=== PATIENT | male | born 1950 | race Caucasian/White ===

== ENCOUNTER → 2018-03-23 | Outpatient (CLI) | payer MEDICARE, OTHER ==
--- NOTE | 2018-03-23 11:36 | US ---
EXAMINATION TYPE: US venous doppler duplex LE LT DATE OF EXAM: 03/23/2018 11:00 AM COMPARISON: NONE CLINICAL HISTORY: M79.662/R22.42 Pain/swelling left leg. SIDE PERFORMED: Left TECHNIQUE: The lower extremity deep venous system is examined utilizing real time linear array sonog pamela with graded compression, doppler sonography and color-flow sonography. VESSELS IMAGED: External Iliac Vein (EIV) Common Femoral Vein Deep Femoral Vein Greater Saphenous Vein * Femoral Vein Popliteal Vein Small Saphenous Vein * Proximal Calf Veins (* superficial vessels) Grayscale, color doppler, spectral doppler imaging performed of the deep veins of the left lower extr emity. There is normal flow, compressibility, vascular waveforms. Left Leg: Positive for DVT from the left distal femoral vein to the distal popliteal vein IMPRESSION: Acute deep venous thrombosis beginning in the distal left femoral vein and extending into the popliteal vein. Preliminary results called to Dr Sanchez at time of exam by Fabi Aguilar at 11:1 2:57 AM on 03/23/2018, patient sent back to the office.
== END | disposition home or self-care (01) ==
LOC: RADUSWWP 10:29
PROVIDERS: ATTEND Internal Medicine
DX: I82.412 Acute embolism and thrombosis of left femoral vein (principal); I82.432 Acute embolism and thrombosis of left popliteal vein

== ENCOUNTER → 2019-08-24 | Outpatient (CLI) | payer MEDICARE, OTHER ==
--- NOTE | 2019-08-24 09:52 | US ---
EXAMINATION TYPE: US abdomen complete DATE OF EXAM: 08/24/2019 COMPARISON: CT CLINICAL HISTORY: R14.0 Abdominal distention gaseous. History of renal stones and cysts per patient EXAM MEASUREMENTS: Liver Length: 13.7 cm Gallbladder Wall: 0.3 cm CBD: 0.6 cm Spleen: 11.9 cm Right Kidney: 13.2 x 10.1 x 5.9 cm Left Kidney: 15.6 x 8.9 x 6.8 cm Pancreas: Within normal limits Liver: left lobe clustered cysts noted = 0.9 x 1.2 x 0.6cm Gallbladder: multiple shadowing stones are noted within Evidence for sonographic Dyer's sign: no CBD: wnl Spleen: wnl Right Kidney: multiple renal cysts with largest simple cyst noted superiorly =5.9 x 5.6 x 5.6cm; mul tiple hyperechoic foci suggesting renal calcifications with largest seen mid pole = 0.5 x 0.4 x 0.2cm Left Kidney: multiple renal cysts with mid pole simple cyst =5.0 x 5.7 x 4.2cm and inferior pole sim ple cyst = 6.0 x 4.9 x 4.7cm; couple of hyperechoic foci noted with larger mid pole shadowing focus = 0.5 x 0.8 x 0.2cm Upper IVC: wnl Abd Aorta: upper aorta size is within normal limits 2.47cm A/P. IMPRESSION: 1. The gallbladder is filled with multiple shadowing gallstones. However no common bile duct dilatati on is seen. No sonographic evidence of acute cholecystitis. 2. Multiple bilateral renal cysts, the largest on the right measuring 5.9 cm and on the left measurin g 6.0 cm. Cortical calcifications bilaterally likely are on the basis of atherosclerosis rather than nonobstructing punctate calculi. 3. Incidentally noted benign-appearing 1.2 cm hepatic cyst.
== END | disposition home or self-care (01) ==
LOC: RADUSWWP 08:26
PROVIDERS: ATTEND Internal Medicine Gastroenterology
DX: K80.20 Calculus of gallbladder without cholecystitis without obstruction (principal); N28.1 Cyst of kidney, acquired; R14.0 Abdominal distension (gaseous)
CPT/HCPCS: 76700

== ENCOUNTER → 2019-08-26 | Outpatient (CLI) | payer MEDICARE, OTHER ==
[2019-08-26 10:05] LABS: Basophils % (A) 0 %; Eosinophils # (A) 0.3 k/uL (0-0.7); Eosinophils % (A) 3 %; HCT 48.5 % (39.0-53.0); HGB 16.1 gm/dL (13.0-17.5); Lymphocytes # (A) 2.3 k/uL (1.0-4.8); Lymphocytes % (A) 24 %; MCH 28.3 pg (25.0-35.0); MCHC 33.2 g/dL (31.0-37.0); MCV 85.3 fL (80.0-100.0); Mean Platelet Volume 6.9; Monocytes # (A) 0.6 k/uL (0-1.0); Monocytes % (A) 6 %; Neutrophils # (A) 6.4 k/uL (1.3-7.7); Neutrophils % (A) 64 %; Platelet Count 259 k/uL (150-450); RBC 5.69 m/uL (4.30-5.90); RDW 14.3 % (11.5-15.5)
[2019-08-26 17:19] LABS: Gliadin AB IgA, Deaminated NEGATIVE (NEGATIVE); Gliadin AB IgA, Unit <0.2 U/mL; Gliadin AB IgG, Deaminated NEGATIVE (NEGATIVE)
== END | disposition home or self-care (01) ==
LOC: LABWHC1 09:08
PROVIDERS: ATTEND Internal Medicine Gastroenterology
DX: R14.0 Abdominal distension (gaseous) (principal)
CPT/HCPCS: 36415; 83516; 85025

== ENCOUNTER → 2020-02-01 | Outpatient (CLI) | payer MEDICARE, OTHER ==
--- NOTE | 2020-02-01 07:56 | US ---
EXAMINATION TYPE: US liver DATE OF EXAM: 02/01/2020 COMPARISON: Complete abdominal ultrasound August 24, 2019 CLINICAL HISTORY: R94.5 ABN LIVER FUNCTIONS. Abnormal liver function EXAM MEASUREMENTS: Liver Length: 17.1 cm Gallbladder Wall: 0.3 cm CBD: 0.4 cm Right Kidney: 13.2 x 5.7 x 4.6 cm Pancreas: Tail obscured by overlying bowel gas Liver: cystic area left lobe = 1.2 x 0.7 x 1.2cm Gallbladder: multiple stones noted, hydropic Evidence for sonographic Dyer's sign: no CBD: appears wnl as visualized Right Kidney: multiple cystic areas noted with largest = 6.0 x 5.5 x 5.8cm, dense echogenic areas no gurpreet with largest = 0.7cm Visualized pancreas is unremarkable. Visualized liver shows anterior thin-walled small cyst. Multiple mobile shadowing gallstones are present in gallbladder. Gallbladder has distended margins without shepard rrounding fluid or abnormal wall thickening. Right kidney redemonstrates several simple-appearing thi n-walled cysts of varying size and shape. IMPRESSION: No new suspicious intrahepatic mass or intrahepatic ductal dilatation.
== END | disposition home or self-care (01) ==
LOC: RADUSWWP 07:10
PROVIDERS: ATTEND Internal Medicine
DX: R94.5 Abnormal results of liver function studies (principal)
CPT/HCPCS: 76705

== ENCOUNTER 2021-01-21 20:26 | Emergency (ER) | payer MEDICARE, OTHER ==
[2021-01-21 20:33] VITALS: TEMP 98.2
[2021-01-21] MEDS ORDERED: SODIUM CHLORIDE 0.9% 1,000 ML IV STA (21:08)
--- NOTE | 2021-01-21 22:09 | ED ---
Weakness HPI - General Chief complaint: Weakness Stated complaint: dizziness, weakness Time Seen by Provider: 01/21/21 20:51 Source: patient Mode of arrival: wheelchair Limitations: no limitations - History of Present Illness Initial comments: Patient is a 70-year-old male with history of hypertension, presenting to the emergency Department with complaints of feeling weak after getting his second Covid vaccine on Friday, 2 days ago. Patient states he was having fatigue, body aches, he did wake up in the middle night sweating. He states he also felt lightheaded yesterday. He states today he continues to feel nauseous, weak and fatigued. He states the body aches seemed to be better. He denies any chest pains, some mild shortness of breath currently states this is normal for him. He's had some back surgeries in the past and states it hurts him to take in a deep breath so he always has a little shortness of breath. He states he's never took his temperature but has been having night sweats and chills. He states he has been trying drink a lot of water. He denies any blurry vision, no dizziness right now. He denies any changes in medication, no recent falls. He has no further complaints. - Related Data Allergies Allergy/AdvReac Type Severity Reaction Status Date / Time Penicillins Allergy Unknown Verified 01/21/21 20:34 Childhood Sulfa (Sulfonamide Allergy Anaphylaxis Verified 01/21/21 20:34 Antibiotics) Review of Systems ROS Statement: Those systems with pertinent positive or pertinent negative responses have been documented in the HPI. ROS Other: All systems not noted in ROS Statement are negative. Past Medical History Additional Past Medical History / Comment(s): arthritis, kindey stones, hernia History of Any Multi-Drug Resistant Organisms: None Reported Past Surgical History: No Surgical Hx Reported Past Psychological History: No Psychological Hx Reported Smoking Status: Never smoker Past Alcohol Use History: None Reported Past Drug Use History: None Reported General Exam - General Exam Comments Initial Comments: GENERAL: Patient is well-developed and well-nourished. Patient is nontoxic and in no acute distress. HEAD: Atraumatic, normocephalic. EYES: Pupils equal round and reactive to light, extraocular movements intact, sclera anicteric, conjunctiva are normal. Eyelids were unremarkable. ENT: TMs normal, nares patent, oropharynx clear without exudates. Moist mucous membranes. NECK: Normal range of motion, supple without lymphadenopathy or JVD. LUNGS: Unlabored respirations. Breath sounds clear to auscultation bilaterally and equal. No wheezes rales or rhonchi. HEART: Regular rate and rhythm without murmurs, rubs or gallops. ABDOMEN: Soft, nontender, normoactive bowel sounds. No guarding, no rebound. No masses appreciated. : Deferred MUSCULOSKELETAL: Normal extremities with adequate strength and normal range of motion, no pitting or edema. No clubbing or cyanosis. NEUROLOGICAL: Patient is alert and oriented x 3. Motor and sensory are also intact. Cranial nerves II through XII grossly intact. Symmetrical smile. Normal speech, normal gait. PSYCH: Normal mood, normal affect. SKIN: Warm, Dry, normal turgor, no rashes or lesions noted. Limitations: no limitations Course Vital Signs 01/21/21 01/22/21 20:28 00:29 Temperature 98.2 F Pulse Rate 62 56 L Respiratory 22 18 Rate Blood Pressure 161/93 157/94 O2 Sat by Pulse 95 96 Oximetry EKG Findings - EKG Comments: EKG Findings:: Sinus bradycardia with first-degree AV block with premature atrial complexes, no signs of an acute ischemic process. Ventricular rate 57, VA interval to 40, QTC 422. No previous to compare. Medical Decision Making - Medical Decision Making Patient is a 70-year-old male with history of hypertension, presenting after feeling weak and fatigued after receiving his second Covid vaccine 2 days ago. Initial vital signs are stable. EKG shows sinus bradycardia with first-degree AV block. No signs of acute ischemic process. Labs are all within normal limits including normal troponin, normal lactic acid, urine is normal, chest x- ray is normal. Patient received some fluids by he was waiting. Upon reexamination, he has been asymptomatic here in the ER. I discussed with him these findings. We discussed that his symptoms could be related to side effects of getting covid vaccine. I recommended following up with his primary care physician. He is stable for discharge and he is in agreement this plan of care. Return parameters were discussed with the patient and he verbalized understanding. Case discussed with Dr. Ontiveros. - Lab Data Result diagrams: 01/21/21 21:48 01/22/21 00:12 Lab Results 01/21/21 01/21/2101/21/21 Range/Units 21:48 21:48 21:48 WBC 10.4 (3.8-10.6) k/uL RBC 5.76 (4.30-5.90) m/uL Hgb 16.8 (13.0-17.5) gm/dL Hct 49.0 (39.0-53.0) % MCV 85.0 (80.0-100.0) fL MCH 29.2 (25.0-35.0) pg MCHC 34.4 (31.0-37.0) g/dL RDW 13.6 (11.5-15.5) % Plt Count 212 (150-450) k/uL MPV 7.0 Neutrophils % 69 % Lymphocytes % 14 % Monocytes % 11 % Eosinophils % 2 % Basophils % 1 % Neutrophils # 7.2 (1.3-7.7) k/uL Lymphocytes # 1.5 (1.0-4.8) k/uL Monocytes # 1.2 H (0-1.0) k/uL Eosinophils # 0.2 (0-0.7) k/uL Basophils # 0.1 (0-0.2) k/uL Sodium (137-145) mmol/L Potassium (3.5-5.1) mmol/L Chloride (98-107) mmol/L Carbon Dioxide (22-30) mmol/L Anion Gap mmol/L BUN (9-20) mg/dL Creatinine (0.66-1.25) mg/dL Est GFR (CKD-EPI)AfAm (>60 ml/min/1.73 sqM) Est GFR (CKD-EPI)NonAf (>60 ml/min/1.73 sqM) Glucose (74-99) mg/dL Plasma Lactic Acid Elliot 1.0 (0.7-2.0) mmol/L Calcium (8.4-10.2) mg/dL Magnesium (1.6-2.3) mg/dL Total Bilirubin (0.2-1.3) mg/dL AST (17-59) U/L ALT (4-49) U/L Alkaline Phosphatase (38-126) U/L Troponin I <0.012 (0.000-0.034) ng/mL Total Protein (6.3-8.2) g/dL Albumin (3.5-5.0) g/dL Urine Color Urine Appearance (Clear) Urine pH (5.0-8.0) Ur Specific [place] (1.001-1.035) Urine Protein (Negative) Urine Glucose (UA) (Negative) Urine Ketones (Negative) Urine Blood (Negative) Urine Nitrite (Negative) Urine Bilirubin (Negative) Urine Urobilinogen (<2.0) mg/dL Ur Leukocyte Esterase (Negative) 01/21/21 01/22/21 Range/Units 22:27 00:12 WBC (3.8-10.6) k/uL RBC (4.30-5.90) m/uL Hgb (13.0-17.5) gm/dL Hct (39.0-53.0) % MCV (80.0-100.0) fL MCH (25.0-35.0) pg MCHC (31.0-37.0) g/dL RDW (11.5-15.5) % Plt Count (150-450) k/uL MPV Neutrophils % % Lymphocytes % % Monocytes % % Eosinophils % % Basophils % % Neutrophils # (1.3-7.7) k/uL Lymphocytes # (1.0-4.8) k/uL Monocytes # (0-1.0) k/uL Eosinophils # (0-0.7) k/uL Basophils # (0-0.2) k/uL Sodium 139 (137-145) mmol/L Potassium 3.4 L (3.5-5.1) mmol/L Chloride 101 (98-107) mmol/L Carbon Dioxide 30 (22-30) mmol/L Anion Gap 8 mmol/L BUN 17 (9-20) mg/dL Creatinine 0.77 (0.66-1.25) mg/dL Est GFR (CKD-EPI)AfAm >90 (>60 ml/min/1.73 sqM) Est GFR (CKD-EPI)NonAf >90 (>60 ml/min/1.73 sqM) Glucose 104 H (74-99) mg/dL Plasma Lactic Acid Elliot (0.7-2.0) mmol/L Calcium 9.0 (8.4-10.2) mg/dL Magnesium 1.6 (1.6-2.3) mg/dL Total Bilirubin 0.4 (0.2-1.3) mg/dL AST 38 (17-59) U/L ALT 30 (4-49) U/L Alkaline Phosphatase 81 (38-126) U/L Troponin I (0.000-0.034) ng/mL Total Protein 6.3 (6.3-8.2) g/dL Albumin 3.6 (3.5-5.0) g/dL Urine Color Light Yellow Urine Appearance Clear (Clear) Urine pH 6.0 (5.0-8.0) Ur Specific [place] 1.015 (1.001-1.035) Urine Protein Negative (Negative) Urine Glucose (UA) Negative (Negative) Urine Ketones Negative (Negative) Urine Blood Negative (Negative) Urine Nitrite Negative (Negative) Urine Bilirubin Negative (Negative) Urine Urobilinogen <2.0 (<2.0) mg/dL Ur Leukocyte Esterase Negative (Negative) Disposition Clinical Impression: Dehydration, Fatigue after COVID-19 vaccination Disposition: HOME SELF-CARE Condition: Stable Instructions (If sedation given, give patient instructions): Fatigue (ED) Additional Instructions: Please return to the Emergency Department if symptoms worsen or any other concerns. Continue to increase your fluid intake. Follow-up with your primary care physician. Is patient prescribed a controlled substance at d/c from ED?: No Referrals: Ger Sanchez MD [Primary Care Provider] - 1-2 days Time of Disposition: 01:08
[2021-01-21 22:23] LABS: Basophils # (A) 0.1 k/uL (0-0.2); Basophils % (A) 1 %; Eosinophils # (A) 0.2 k/uL (0-0.7); Eosinophils % (A) 2 %; HGB 16.8 gm/dL (13.0-17.5); Lymphocytes # (A) 1.5 k/uL (1.0-4.8); Lymphocytes % (A) 14 %; MCH 29.2 pg (25.0-35.0); MCHC 34.4 g/dL (31.0-37.0); Monocytes # (A) 1.2 k/uL (0-1.0); Monocytes % (A) 11 %; Neutrophils # (A) 7.2 k/uL (1.3-7.7); Neutrophils % (A) 69 %; Platelet Count 212 k/uL (150-450); RBC 5.76 m/uL (4.30-5.90); RDW 13.6 % (11.5-15.5); WBC 10.4 k/uL (3.8-10.6)
--- NOTE | 2021-01-21 22:26 | XR ---
EXAMINATION TYPE: XR chest 2V DATE OF EXAM: 01/21/2021 COMPARISON: 02/03/2013 HISTORY: Weakness TECHNIQUE: 2 views FINDINGS: Heart and mediastinum are normal. Lungs are clear. Diaphragm is normal. Bony thorax is inta ct. Pulmonary vascularity is normal. IMPRESSION: Normal chest.
[2021-01-21 23:26] LABS: Appearance,Urine Clear (Clear); Bilirubin,Urine Negative (Negative); Blood,Urine Negative (Negative); Color,Urine Light Yellow; Glucose,Urine (UA) Negative (Negative); Ketones,Urine Negative (Negative); Leukocyte Esterase,Urine Negative (Negative); Nitrite,Urine Negative (Negative); Protein,Urine Negative (Negative); Specific Gravity,Urine 1.015 (1.001-1.035); Urobilinogen,Urine <2.0 mg/dL (<2.0)
[2021-01-22 00:33] VITALS: BP 157/94; PULSE 56; RESP 18
[2021-01-22 00:55] LABS: ALT 30 U/L (4-49); AST 38 U/L (17-59); African American GFR (CKD) >90 (>60 ml/min/1.73 sqM); Albumin 3.6 g/dL (3.5-5.0); Alkaline Phosphatase 81 U/L (38-126); Anion Gap 8 mmol/L; Blood Urea Nitrogen 17 mg/dL (9-20); Carbon Dioxide 30 mmol/L (22-30); Chloride 101 mmol/L (98-107); Glucose 104 mg/dL (74-99); Magnesium 1.6 mg/dL (1.6-2.3); Non-African American GFR(CKD) >90 (>60 ml/min/1.73 sqM); Potassium 3.4 mmol/L (3.5-5.1); Sodium 139 mmol/L (137-145); Total Bilirubin 0.4 mg/dL (0.2-1.3); Total Protein 6.3 g/dL (6.3-8.2)
== END 2021-01-22 01:31 | disposition home or self-care (01) ==
LOC: EC 20:26
DX: E86.0 Dehydration (principal); R06.02 Shortness of breath; R68.83 Chills (without fever); R61 Generalized hyperhidrosis; R52 Pain, unspecified; T50.B95A Adverse effect of other viral vaccines, initial encounter; I10 Essential (primary) hypertension
CPT/HCPCS: 36415; 71046; 80053; 81003; 83605; 83735; 84484; 85025; 93005; 96360; 96361; 99285

== ENCOUNTER 2021-03-14 20:09 | Emergency (ER) | payer MEDICARE, OTHER ==
[2021-03-14 20:57] VITALS: TEMP 98.1
[2021-03-14] MEDS ORDERED: SODIUM CHLORIDE 0.9% 500 ML 500 ML IV STA (22:18)
[2021-03-14 22:46] LABS: Appearance,Urine Clear (Clear); Basophils # (A) 0.1 k/uL (0-0.2); Basophils % (A) 1 %; Bilirubin,Urine Negative (Negative); Blood,Urine Negative (Negative); Color,Urine Light Yellow; Eosinophils # (A) 0.1 k/uL (0-0.7); Eosinophils % (A) 1 %; Glucose,Urine (UA) Negative (Negative); HCT 50.3 % (39.0-53.0); HGB 17.4 gm/dL (13.0-17.5); Ketones,Urine Negative (Negative); Leukocyte Esterase,Urine Negative (Negative); Lymphocytes # (A) 1.5 k/uL (1.0-4.8); Lymphocytes % (A) 13 %; MCH 30.1 pg (25.0-35.0); MCHC 34.6 g/dL (31.0-37.0); MCV 87.2 fL (80.0-100.0); Monocytes # (A) 0.8 k/uL (0-1.0); Monocytes % (A) 7 %; Neutrophils # (A) 9.3 k/uL (1.3-7.7); Neutrophils % (A) 77 %; Nitrite,Urine Negative (Negative); Platelet Count 224 k/uL (150-450); Protein,Urine Negative (Negative); RBC 5.77 m/uL (4.30-5.90); RDW 13.8 % (11.5-15.5); Specific Gravity,Urine 1.004 (1.001-1.035); Urobilinogen,Urine <2.0 mg/dL (<2.0); WBC 12.1 k/uL (3.8-10.6)
[2021-03-14 23:00] LABS: African American GFR (CKD) >90 (>60 ml/min/1.73 sqM); Anion Gap 11 mmol/L; Blood Urea Nitrogen 21 mg/dL (9-20); Calcium 9.3 mg/dL (8.4-10.2); Carbon Dioxide 24 mmol/L (22-30); Chloride 101 mmol/L (98-107); Glucose 118 mg/dL (74-99); Non-African American GFR(CKD) >90 (>60 ml/min/1.73 sqM); Sodium 136 mmol/L (137-145)
[2021-03-14 23:15] LABS: Potassium 4.2 mmol/L (3.5-5.1)
--- NOTE | 2021-03-14 23:25 | CT ---
EXAMINATION TYPE: CT brain wo con DATE OF EXAM: 03/14/2021 COMPARISON: None HISTORY: [facility] CT DLP: 1119.40 mGycm Automated exposure control for dose reduction was used. There is cerebral cortical atrophy. There is no mass effect nor midline shift. There is no sign of in tracranial hemorrhage. The calvarium is intact. There is normal aeration of the mastoid sinuses. IMPRESSION: Mild cerebral atrophy. No acute intracranial abnormality.
[2021-03-15] MEDS ORDERED: methylPREDNISolone SOD SUCCI 125 MG/2 ML VIAL IV STA (00:25)
[2021-03-15] MEDS ORDERED: KETOROLAC 15 MG/ML 1 ML VIAL IVP STA (00:25)
--- NOTE | 2021-03-15 01:04 | ED ---
General Adult HPI - General Chief complaint: Recheck/Abnormal Lab/Rx Stated complaint: dehydration Time Seen by Provider: 03/14/21 22:00 Source: patient Mode of arrival: ambulatory Limitations: no limitations - Related Data Home Medications Medication Instructions Recorded Confirmed Ergocalciferol (Vitamin D2) 1,250 mcg PO YOST 03/14/21 03/14/21 [Drisdol (50,000 Iu)] Isosorbide Mononitrate ER [Imdur] 30 mg PO DAILY 03/14/21 03/14/21 Metoprolol Tartrate [Lopressor] 50 mg PO BID 03/14/21 03/14/21 Omeprazole 20 mg PO BID 03/14/21 03/14/21 amLODIPine [Norvasc] 10 mg PO DAILY 03/14/21 03/14/21 hydrALAZINE HCL [Apresoline] 50 mg PO TID 03/14/21 03/14/21 hydroCHLOROthiazide [Hydrodiuril] 25 mg PO DAILY 03/14/21 03/14/21 Allergies Allergy/AdvReac Type Severity Reaction Status Date / Time Penicillins Allergy Unknown Verified 03/14/21 22:50 Childhood Sulfa (Sulfonamide Allergy Anaphylaxis Verified 03/14/21 22:50 Antibiotics) Review of Systems ROS Statement: Those systems with pertinent positive or pertinent negative responses have been documented in the HPI. ROS Other: All systems not noted in ROS Statement are negative. Past Medical History Past Medical History: Hypertension Additional Past Medical History / Comment(s): arthritis, kindey stones, hernia History of Any Multi-Drug Resistant Organisms: None Reported Past Surgical History: No Surgical Hx Reported Additional Past Surgical History / Comment(s): kidney stones Past Psychological History: No Psychological Hx Reported Smoking Status: Never smoker Past Alcohol Use History: None Reported Past Drug Use History: None Reported General Exam Limitations: no limitations Course Vital Signs 03/14/21 03/14/21 03/15/21 20:54 22:43 00:57 Temperature 98.1 F Pulse Rate 56 L 87 78 Respiratory 18 18 17 Rate Blood Pressure 162/95 145/84 162/94 O2 Sat by Pulse 95 99 99 Oximetry Medical Decision Making - Lab Data Result diagrams: 03/14/21 22:37 03/14/21 22:37 Lab Results 03/14/21 03/14/21 03/14/21 Range/Units 22:37 22:37 22:37 WBC 12.1 H (3.8-10.6) k/uL RBC 5.77 (4.30-5.90) m/uL Hgb 17.4 (13.0-17.5) gm/dL Hct 50.3 (39.0-53.0) % MCV 87.2 (80.0-100.0) fL MCH 30.1 (25.0-35.0) pg MCHC 34.6 (31.0-37.0) g/dL RDW 13.8 (11.5-15.5) % Plt Count 224 (150-450) k/uL MPV 7.0 Neutrophils % 77 % Lymphocytes % 13 % Monocytes % 7 % Eosinophils % 1 % Basophils % 1 % Neutrophils # 9.3 H (1.3-7.7) k/uL Lymphocytes # 1.5 (1.0-4.8) k/uL Monocytes # 0.8 (0-1.0) k/uL Eosinophils # 0.1 (0-0.7) k/uL Basophils # 0.1 (0-0.2) k/uL Sodium 136 L (137-145) mmol/L Potassium 4.2 (3.5-5.1) mmol/L Chloride 101 (98-107) mmol/L Carbon Dioxide 24 (22-30) mmol/L Anion Gap 11 mmol/L BUN 21 H (9-20) mg/dL Creatinine 0.72 (0.66-1.25) mg/dL Est GFR (CKD-EPI)AfAm >90 (>60 ml/min/1.73 sqM) Est GFR (CKD-EPI)NonAf >90 (>60 ml/min/1.73 sqM) Glucose 118 H (74-99) mg/dL Calcium 9.3 (8.4-10.2) mg/dL Urine Color Light Yellow Urine Appearance Clear (Clear) Urine pH 6.0 (5.0-8.0) Ur Specific [place] 1.004 (1.001-1.035) Urine Protein Negative (Negative) Urine Glucose (UA) Negative (Negative) Urine Ketones Negative (Negative) Urine Blood Negative (Negative) Urine Nitrite Negative (Negative) Urine Bilirubin Negative (Negative) Urine Urobilinogen <2.0 (<2.0) mg/dL Ur Leukocyte Esterase Negative (Negative) Disposition Clinical Impression: Dehydration after exertion, Headache Disposition: HOME SELF-CARE Condition: Good Instructions (If sedation given, give patient instructions): Acute Headache (ED ), Dehydration (ED) Is patient prescribed a controlled substance at d/c from ED?: No Referrals: Ger Sanchez MD [Primary Care Provider] - 1-2 days
[2021-03-15 01:28] VITALS: BP 148/90; PULSE 76; RESP 18
== END 2021-03-15 01:28 | disposition home or self-care (01) ==
LOC: EC 20:09
DX: E86.0 Dehydration (principal); R51.9 Headache, unspecified; I10 Essential (primary) hypertension; M19.90 Unspecified osteoarthritis, unspecified site; Z87.442 Personal history of urinary calculi; Z79.899 Other long term (current) drug therapy; Z88.0 Allergy status to penicillin
CPT/HCPCS: 36415; 80048; 85025; 81003; 70450; 99284; 96374; 96375; 96361; J2930; J1885

== ENCOUNTER 2024-01-15 11:00 | Inpatient (IN) | payer MEDICARE, OTHER ==
[2024-01-15 11:59] LABS: Basophils # (A) 0.1 k/uL (0-0.2); Basophils % (A) 1 %; Eosinophils # (A) 0.1 k/uL (0-0.7); Eosinophils % (A) 1 %; HCT 53.5 % (39.0-53.0); HGB 17.6 gm/dL (13.0-17.5); Lymphocytes # (A) 1.6 k/uL (1.0-4.8); Lymphocytes % (A) 16 %; MCV 87.9 fL (80.0-100.0); Mean Platelet Volume 7.6; Monocytes # (A) 0.6 k/uL (0-1.0); Monocytes % (A) 6 %; Neutrophils # (A) 7.2 k/uL (1.3-7.7); Neutrophils % (A) 74 %; Platelet Count 237 k/uL (150-450); RBC 6.09 m/uL (4.30-5.90); RDW 14.3 % (11.5-15.5); WBC 9.7 k/uL (3.8-10.6)
[2024-01-15 12:00] LABS: Appearance,Urine Clear (Clear); Bilirubin,Urine Negative (Negative); Blood,Urine Negative (Negative); Color,Urine Colorless; Glucose,Urine (UA) Negative (Negative); Ketones,Urine Negative (Negative); Leukocyte Esterase,Urine Negative (Negative); Nitrite,Urine Negative (Negative); Protein,Urine Trace (Negative); Specific Gravity,Urine 1.007 (1.001-1.035); Urobilinogen,Urine <2.0 mg/dL (<2.0)
[2024-01-15 12:17] LABS: Partial Thromboplastin Time 26.9 sec (22.0-30.0); Prothrombin Time 11.4 sec (10.0-12.5)
[2024-01-15 12:19] LABS: ALT 41 U/L (4-49); AST 39 U/L (17-59); African American GFR (CKD) >90 (>60 ml/min/1.73 sqM); Albumin 4.3 g/dL (3.5-5.0); Alkaline Phosphatase 105 U/L (38-126); Anion Gap 10 mmol/L; Blood Urea Nitrogen 22 mg/dL (9-20); Calcium 9.3 mg/dL (8.4-10.2); Carbon Dioxide 26 mmol/L (22-30); Chloride 102 mmol/L (98-107); Glucose 129 mg/dL (74-99); Lipase 55 U/L (23-300); Magnesium 1.6 mg/dL (1.6-2.3); Non-African American GFR(CKD) 88 (>60 ml/min/1.73 sqM); Potassium 3.7 mmol/L (3.5-5.1); Sodium 138 mmol/L (137-145); Total Protein 7.2 g/dL (6.3-8.2)
--- NOTE | 2024-01-15 12:21 | XR ---
EXAMINATION TYPE: XR chest 2V DATE OF EXAM: 01/15/2024 11:54 AM CLINICAL INDICATION:Male, 73 years old with history of Chest Pain; COMPARISON: Chest radiographs from 01/21/2021 TECHNIQUE: XR chest 2V Frontal and lateral views of the chest. FINDINGS: Lungs/Pleura: There is no evidence of pleural effusion, focal consolidation, or pneumothorax. Pulmonary vascularity: Unremarkable. Heart/mediastinum: Cardiomediastinal silhouette is unremarkable. Musculoskeletal: No acute osseous pathology. IMPRESSION: No acute cardiopulmonary disease/process.
[2024-01-15 12:28] LABS: NT-Pro-B-Type Natriuretic Pept 1250 pg/mL
[2024-01-15] MEDS: LORazepam 2 MG/ML INJ IV STA (12:53)
--- NOTE | 2024-01-15 13:09 | CT ---
EXAMINATION TYPE: CT angio thor/abd pel aorta DATE OF EXAM: 01/15/2024 COMPARISON: NONE CLINICAL INDICATION: Male, 73 years old with history of eval PE and dissection. cp to back. new onset afib; Technique: Multiple axial images obtained through the chest abdomen and pelvis before and after the u neventful menstruation nonionic IV contrast. The exam was performed according to the CTA protocol. CTA CHEST: There is mild aneurysmal dilatation of the ascending thoracic aorta which measures approximately 4 cm . There is no thoracic aortic dissection. There are no filling defects within the pulmonary arterial circulation to suggest pulmonary embolism. Heart size normal. CTA abdomen and pelvis. Abdominal aorta is normal in caliber was no aneurysm or dissection. The mesenteric artery origins and renal origins are widely patent. There is no significant arterioscl erotic calcification. The iliac arteries are normal. Chest CT, nonvascular: The lung apices are not included in the study. The visualized portions of the lung there is no lung m ass or nodule. There is no airspace consolidation or abnormal interstitial density. There is no pleur al effusion or pneumothorax. There is no mediastinal, hilar or axillary adenopathy. No focal osseous lesions are seen. CT abdomen and pelvis, nonvascular: There are no gallstones but the gallbladder is markedly distended. There is no gall ladder wall thick ening or pericholecystic fluid. There is no biliary ductal dilatation. There is no focal mass of the spleen, pancreas or adrenal glands there is no organomegaly. There are multiple nonobstructing bilateral renal calcifications. The largest calcification on the le ft is 13 mm and the largest calcification on the right is 1.5 mm. There are multiple large simple cortical cysts in the kidneys. There is no hydronephrosis. There is no retroperitoneal adenopathy or hemorrhage. The bowel loops are normal in caliber and is no dilatation or obstruction. There is diverticulosis of the colon without CT evidence of diverticulitis. No pelvic mass or adenopathy. There is moderate prostatic hypertrophy. The osseous structures are intact. IMPRESSION: 1. Mild aneurysmal dilatation of the ascending thoracic aorta which measures 4 cm. 2. No abdominal aortic aneurysm. 3. No thoracic or abdominal aortic dissection. 4. Multiple bilateral nonobstructing renal calcifications. 5. Prostatic hypertrophy. 6. Marked diverticulosis, without CT evidence of diverticulitis. 7. Markedly distended gallbladder without wall thickening, pericholecystic fluid or gallstone.
[2024-01-15] MEDS ORDERED: HEPARIN SODIUM 1,000 UN/ML (10ML VL) IV PRN (13:52)
[2024-01-15] MEDS ORDERED: NALOXONE 0.4 MG/ML 1 ML VIAL IV PRN (13:52)
--- NOTE | 2024-01-15 13:54 | ED ---
General Adult HPI - General Chief complaint: Chest Pain Stated complaint: Chest pain, sob Time Seen by Provider: 01/15/24 11:22 Source: patient Mode of arrival: wheelchair - History of Present Illness Initial comments: Patient is a 73-year-old male presents emergency department complaining of intermittent chest pain over the last few weeks. Gets substernal chest pain with radiation straight through to the back. Also intermittently will feel short of breath. No nausea or vomiting. No known palliative or provocative factors. Currently does not have the symptoms. Denies abdominal pain. Has a history remarkable for hypertension, as well as some chronic dependent edema. Unknown regarding congestive heart failure diagnosis. No other acute complaints at this time. Presents for further evaluation at this time. - Related Data Home Medications Medication Instructions Recorded Confirmed Ergocalciferol (Vitamin D2) 1,250 mcg PO YOST 03/14/21 01/15/24 [Drisdol (50,000 Iu)] Isosorbide Mononitrate ER [Imdur] 30 mg PO DAILY 03/14/21 01/15/24 Metoprolol Tartrate [Lopressor] 50 mg PO BID 03/14/21 01/15/24 Omeprazole 20 mg PO BID 03/14/21 01/15/24 amLODIPine [Norvasc] 10 mg PO DAILY 03/14/21 01/15/24 hydrALAZINE HCL [Apresoline] 50 mg PO AC-TID 03/14/21 01/15/24 hydroCHLOROthiazide [Hydrodiuril] 25 mg PO DAILY 03/14/21 01/15/24 cloNIDine HCL [Catapres] 0.1 mg PO BID 01/15/24 01/15/24 Allergies Allergy/AdvReac Type Severity Reaction Status Date / Time Penicillins Allergy Swelling Verified 01/15/24 12:00 lips Sulfa (Sulfonamide Allergy Anaphylaxis Verified 01/15/24 12:00 Antibiotics) Review of Systems ROS Statement: Those systems with pertinent positive or pertinent negative responses have been documented in the HPI. Review of Systems: CONST: Denies fever EYES: Denies blurry vision ENT: Denies nasal congestion C/V: Denies Chest pain RESP: Denies shortness of breath GI: Denies abdominal pain : Denies dysuria SKIN: Denies rash. MSK: Denies joint pain. NEURO: Denies headache ROS Other: All systems not noted in ROS Statement are negative. Past Medical History Past Medical History: Hypertension Additional Past Medical History / Comment(s): arthritis, kindey stones, hernia History of Any Multi-Drug Resistant Organisms: None Reported Past Surgical History: No Surgical Hx Reported Additional Past Surgical History / Comment(s): kidney stones Past Psychological History: No Psychological Hx Reported Smoking Status: Never smoker Past Alcohol Use History: None Reported Past Drug Use History: None Reported General Exam - General Exam Comments Initial Comments: General: Appears in no acute distress. HEAD: Normal with no signs of head trauma. EYES: PERRLA, EOMI, conjunctiva normal, no discharge. ENT: Hearing grossly intact, normal oropharynx. RESPIRATORY: Clear breath sounds bilaterally. No wheezes, rales, or rhonchi. C/V: Irregular rate and rhythm. S1 and S2 auscultated, symmetrical lower extremity pitting edema which per patient is chronic., peripheral pulses 2+ and intact throughout ABD: Abd is soft, nontender, nondistended EXT: Normal range of motion, no obvious deformity SKIN: No rashes or lesions observed on exposed skin. NEURO: Alert and oriented x 4 Course Vital Signs 01/15/24 11:09 Temperature 97.7 F Pulse Rate 57 L Respiratory 18 Rate Blood Pressure 178/94 O2 Sat by Pulse 97 Oximetry Medical Decision Making - Medical Decision Making Was pt. sent in by a medical professional or institution (TRELL Benoit, MARKETING PROJECT MANAGER, urgent care, hospital, or penitentiary...) When possible be specific @ -No Did you speak to anyone other than the patient for history (EMS, parent, family, police, friend...)? What history was obtained from this source @ -No Did you review nursing and triage notes (agree or disagree)? Why? @ -I reviewed and agree with nursing and triage notes Were old charts reviewed (outside hosp., previous admission, EMS record, old EKG, old radiological studies, urgent care reports/EKG's, penitentiary records)? Report findings @ -Old charts reviewed including prior EKGs from January 2021. A-fib is new. Differential Diagnosis (chest pain, altered mental status, abdominal pain women, abdominal pain men, vaginal bleeding, weakness, fever, dyspnea, syncope, headache, dizziness, GI bleed, back pain, seizure, CVA, palpatations, mental health, musculoskeletal)? @ -Differential Chest Pain: Stable Angina, Unstable Angina, STEMI, NSTEMI Aortic Dissection, Pneumothorax, Musculoskeletal, Esophageal Spasm GERD, Cholecystitis, Pancreatitis, Zoster, this is not meant to be an all-inclusive list. EKG interpreted by me (3pts min.). @ -As above X-rays interpreted by me (1pt min.). @ -Chest x-ray reveals no obvious acute cardiopulmonary process. CT interpreted by me (1pt min.). @ -CT angiogram of the chest abdomen pelvis as well as lungs revealed no evidence of PE. Patient does have a mild dilation of the ascending thoracic aneurysm without evidence of dissection. U/S interpreted by me (1pt. min.). @ -None done What testing was considered but not performed or refused? (CT, X-rays, U/S, labs)? Why? @ -None What meds were considered but not given or refused? Why? @ -None Did you discuss the management of the patient with other professionals (professionals i.e. , PA, MARKETING PROJECT MANAGER, lab, RT, psych nurse, director social, assistant professor of economics, teacher, client sales and service officer, family caseworker)? Give summary @ -Discussed with the admitting physician, Dr. Sanchez who was in agreement with the plan. Was smoking cessation discussed for >3mins.? @ -No Was critical care preformed (if so, how long)? @ -Yes, 33 minutes. Were there social determinants of health that impacted care today? How? (Homelessness, low income, unemployed, alcoholism, drug addiction, transportation, low edu. Level, literacy, decrease access to med. care, prison, rehab)? @ -No Was there de-escalation of care discussed even if they declined (Discuss DNR or withdrawal of care, Hospice)? DNR status @ -No What co-morbidities impacted this encounter? (DM, HTN, Smoking, COPD, CAD, Cancer, CVA, ARF, Chemo, Hep., AIDS, mental health diagnosis, sleep apnea, morbid obesity)? @ -Hypertension Was patient admitted / discharged? Hospital course, mention meds given and route, prescriptions, significant lab abnormalities, going to OR and other pertinent info. @ -Based on patient's presentation and physical exam, it appears the patient is in new onset A-fib. Not in RVR. Is already on a beta-aaron which is likely having adequate rate control. Currently is asymptomatic otherwise. He does have some lower extremity edema. Will obtain cardiopulmonary workup and due to the patient having chest pain with radiation straight through between the shoulder blades to the back, we will obtain CT angiogram to evaluate for PE as well as aortic injury. Patient was in agreement this plan. Vital signs are within acceptable limits. Patient given [address] and chest x-ray negative for any obvious aortic injury and negative for PE. Patient does have a small dilation of the ascending thoracic aorta. Patient's troponin is undetectable. Age-adjusted D-dimer within normal limits. Remainder the labs unremarkable except for slight elevation in BNP which is borderline. Could be secondary to A-fib. At this time, patient ross asymptomatic. I did recommend admission at this time. Patient will be started on a heparin drip and placed on observation. Will continue with home medications. Patient in agreement this plan. Cardiology consulted. Echo ordered. Patient will also be given a single dose of Lasix. Remains chest pain-free. We will continue to trend troponin. Undiagnosed new problem with uncertain prognosis? @ -No Drug Therapy requiring intensive monitoring for toxicity (Heparin, Nitro, Insulin, Cardizem)? @ -Heparin Were any procedures done? @ -No Diagnosis/symptom? @ -Chest pain, new onset A-fib Acute, or Chronic, or Acute on Chronic? @ -Acute Uncomplicated (without systemic symptoms) or Complicated (systemic symptoms)? @ -Complicated Side effects of treatment? @ -No Exacerbation, Progression, or Severe Exacerbation? @ -No Poses a threat to life or bodily function? How? (Chest pain, USA, CA, pneumonia, PE, COPD, DKA, ARF, appy, cholecystitis, CVA, Diverticulitis, Homicidal, Suicidal, threat to staff... and all critical care pts) @ -Yes - Lab Data Result diagrams: 01/15/24 11:41 01/15/24 11:41 Lab Results 01/15/24 01/15/24 01/15/24 Range/Units 11:41 11:41 11:41 WBC 9.7 (3.8-10.6) k/uL RBC 6.09 H (4.30-5.90) m/uL Hgb 17.6 H (13.0-17.5) gm/dL Hct 53.5 H (39.0-53.0) % MCV 87.9 (80.0-100.0) fL MCH 29.0 (25.0-35.0) pg MCHC 33.0 (31.0-37.0) g/dL RDW 14.3 (11.5-15.5) % Plt Count 237 (150-450) k/uL MPV 7.6 Neutrophils % 74 % Lymphocytes % 16 % Monocytes % 6 % Eosinophils % 1 % Basophils % 1 % Neutrophils # 7.2 (1.3-7.7) k/uL Lymphocytes # 1.6 (1.0-4.8) k/uL Monocytes # 0.6 (0-1.0) k/uL Eosinophils # 0.1 (0-0.7) k/uL Basophils # 0.1 (0-0.2) k/uL PT 11.4 (10.0-12.5) sec INR 1.0 (<1.2) APTT 26.9 (22.0-30.0) sec D-Dimer 0.60 H (<0.60) mg/L FEU Sodium (137-145) mmol/L Potassium (3.5-5.1) mmol/L Chloride (98-107) mmol/L Carbon Dioxide (22-30) mmol/L Anion Gap mmol/L BUN (9-20) mg/dL Creatinine (0.66-1.25) mg/dL Est GFR (CKD-EPI)AfAm (>60 ml/min/1.73 sqM) Est GFR (CKD-EPI)NonAf (>60 ml/min/1.73 sqM) Glucose (74-99) mg/dL Calcium (8.4-10.2) mg/dL Magnesium (1.6-2.3) mg/dL Total Bilirubin (0.2-1.3) mg/dL AST (17-59) U/L ALT (4-49) U/L Alkaline Phosphatase (38-126) U/L Troponin I (0.000-0.034) ng/mL NT-Pro-B Natriuret Pep pg/mL Total Protein (6.3-8.2) g/dL Albumin (3.5-5.0) g/dL Lipase (23-300) U/L Urine Color Colorless Urine Appearance Clear (Clear) Urine pH 6.0 (5.0-8.0) Ur Specific Sawyer 1.007 (1.001-1.035) Urine Protein Trace H (Negative) Urine Glucose (UA) Negative (Negative) Urine Ketones Negative (Negative) Urine Blood Negative (Negative) Urine Nitrite Negative (Negative) Urine Bilirubin Negative (Negative) Urine Urobilinogen <2.0 (<2.0) mg/dL Ur Leukocyte Esterase Negative (Negative) 01/15/24 01/15/24 Range/Units 11:41 11:41 WBC (3.8-10.6) k/uL RBC (4.30-5.90) m/uL Hgb (13.0-17.5) gm/dL Hct (39.0-53.0) % MCV (80.0-100.0) fL MCH (25.0-35.0) pg MCHC (31.0-37.0) g/dL RDW (11.5-15.5) % Plt Count (150-450) k/uL MPV Neutrophils % % Lymphocytes % % Monocytes % % Eosinophils % % Basophils % % Neutrophils # (1.3-7.7) k/uL Lymphocytes # (1.0-4.8) k/uL Monocytes # (0-1.0) k/uL Eosinophils # (0-0.7) k/uL Basophils # (0-0.2) k/uL PT (10.0-12.5) sec INR (<1.2) APTT (22.0-30.0) sec D-Dimer (<0.60) mg/L FEU Sodium 138 (137-145) mmol/L Potassium 3.7 (3.5-5.1) mmol/L Chloride 102 (98-107) mmol/L Carbon Dioxide 26 (22-30) mmol/L Anion Gap 10 mmol/L BUN 22 H (9-20) mg/dL Creatinine 0.83 (0.66-1.25) mg/dL Est GFR (CKD-EPI)AfAm >90 (>60 ml/min/1.73 sqM) Est GFR (CKD-EPI)NonAf 88 (>60 ml/min/1.73 sqM) Glucose 129 H (74-99) mg/dL Calcium 9.3 (8.4-10.2) mg/dL Magnesium 1.6 (1.6-2.3) mg/dL Total Bilirubin 1.0 (0.2-1.3) mg/dL AST 39 (17-59) U/L ALT 41 (4-49) U/L Alkaline Phosphatase 105 (38-126) U/L Troponin I <0.012 (0.000-0.034) ng/mL NT-Pro-B Natriuret Pep 1250 pg/mL Total Protein 7.2 (6.3-8.2) g/dL Albumin 4.3 (3.5-5.0) g/dL Lipase 55 (23-300) U/L Urine Color Urine Appearance (Clear) Urine pH (5.0-8.0) Ur Specific Sawyer (1.001-1.035) Urine Protein (Negative) Urine Glucose (UA) (Negative) Urine Ketones (Negative) Urine Blood (Negative) Urine Nitrite (Negative) Urine Bilirubin (Negative) Urine Urobilinogen (<2.0) mg/dL Ur Leukocyte Esterase (Negative) - EKG Data -: EKG Interpreted by Me EKG Comments: 12-lead Electrocardiogram Interpretation Note EKG was reviewed and interpreted by myself. 12-lead ECG performed at 1203 is interpreted by me as revealing atrial fibrillation at a rate of 66 beats per minute. Morton is normal. [place] interval is unobtainable, QRS duration is 83 ms, QT c is 415 ms.. There were no ST or T wave abnormalities to suggest myocardial ischemia or injury. R wave progression across the precordium was satisfactory. By my interpretation this EKG is non-diagnostic for acute ischemia. Patient has rate controlled atrial fibrillation. Critical Care Time Critical Care Time: Yes Total Critical Care Time: 33 Disposition Clinical Impression: Chest pain, New onset a-fib Disposition: ADMITTED IP TO THIS HOSP Condition: Stable Time of Disposition: 13:41
[2024-01-15] MEDS: ASPIRIN 81 MG PO STA (15:35)
[2024-01-15] MEDS: FUROSEMIDE 10 MG/ML 4 ML VIAL IV STA (15:36)
[2024-01-15] MEDS: HEPARIN SODIUM 1,000 UN/ML (10ML VL) IV ONE (15:41)
[2024-01-15] MEDS: HEPARIN SOD,PORK IN 0.45% NACL 25,000 UNIT in 0.45% NACL 1 250ML.BAG IV SCH (15:42)
[2024-01-15] MEDS: hydrALAZINE HCL 50 MG TAB PO SCH (18:13)
[2024-01-15] MEDS: cloNIDine HCL 0.1 MG TAB PO SCH (20:33)
[2024-01-15] MEDS: PANTOPRAZOLE 40 MG TABLET PO SCH (20:33)
[2024-01-15] MEDS: METOPROLOL TARTRATE 50 MG TAB PO SCH (20:33)
--- NOTE | 2024-01-16 08:01 | P.CRDCN ---
History of Present Illness History of present illness: HISTORY OF PRESENT ILLNESS: This is a 73-year-old male with a past medical history significant for hypertension. Patient does not follow with a director of managed care. We have been asked to see the patient in consultation for chest pain and atrial fibrillation. Patient examined at the bedside. Patient presented to the hospital with a chief complaint of chest discomfort and palpitations. Patient was found to be in new onset atrial fibrillation. He was started on IV heparin. The patient did develop hematuria after initiation of IV heparin and it has since been discontinued. Urology has been consulted for further evaluation. At the time of examination, patient denies chest pain or pressure. He denies shortness of breath. Patient remains in atrial fibrillation this morning with controlled ventricular rate. DIAGNOSTICS: - EKG reveals atrial fibrillation with controlled ventricular rate. - Chest xray negative for acute process. - Laboratory data: WBC 9.7. Hemoglobin 17.6. Platelet count 237. D-dimer 0.60. Sodium 138. Potassium 3.7. BUN 22. Creatinine 0.83. Troponin negative x 3. proBNP 1250. - Current home cardiac medications include hydralazine 50 mg 3 times a day, hydrochlorothiazide 25 mg daily, clonidine 0.1 mg twice a day, Toprol tartrate 50 mg twice daily, amlodipine 10 mg daily, and Imdur 30 mg daily. REVIEW OF SYSTEMS: At the time of my exam: CONSTITUTIONAL: Denies fever or chills. HEENT: Denies blurred vision, vision changes, or eye pain. Denies hemoptysis CARDIOVASCULAR: Denies chest pain. Denies orthopnea. Denies PND. Denies palpitations RESPIRATORY: Denies shortness of breath. GASTROINTESTINAL: Denies abdominal pain. Denies nausea or vomiting. HEMATOLOGIC: Denies bleeding disorders. GENITOURINARY: Denies any blood in urine. SKIN: Denies pruitis. Denies rash. PHYSICAL EXAM: VITAL SIGNS: Reviewed. GENERAL: Well-developed in no acute distress. HEENT: Head is normocephalic. Pupils are equal, round. Sclerae anicteric. Mucous membranes of the mouth are moist. Neck supple. No JVD or thyromegaly LUNGS: Respirations even and unlabored. Lungs essentially clear to auscultation bilaterally. HEART: Irregular rate and rhythm. S1 and S2 heard. ABDOMEN: Soft. Nondistended. Nontender. EXTREMITIES: Normal range of motion. No clubbing or cyanosis. Peripheral pulses intact. No lower extremity edema NEUROLOGIC: Awake and alert. Oriented x 3. ASSESSMENT: New onset atrial fibrillation with controlled ventricular rate Chest pain, atypical, troponin negative x 3 Hypertension Hematuria PLAN: Obtain 2D echo to assess cardiac structure and function Discontinue IV heparin secondary to hematuria. Urology has been consulted Check TSH Continue additional cardiac medications Further recommendations pending patient course Nurse practitioner note has been reviewed by physician. Signing provider agrees with the documented findings, assessment, and plan of care documented by DISABILITY REPRESENTATIVE as a scribe. Past Medical History Past Medical History: Hypertension Additional Past Medical History / Comment(s): ankylosing spondylitis, arthritis, kindey stones, hital hernia current 2023, KLET[place], ulcer History of Any Multi-Drug Resistant Organisms: None Reported Past Surgical History: No Surgical Hx Reported Additional Past Surgical History / Comment(s): kidney stones with lithrotripsy Past Psychological History: No Psychological Hx Reported Smoking Status: Never smoker Past Alcohol Use History: None Reported Past Drug Use History: None Reported Medications and Allergies Home Medications Medication Instructions Recorded Confirmed Type Ergocalciferol (Vitamin D2) 1,250 mcg PO YOST 03/14/21 01/15/24 History [Drisdol (50,000 Iu)] Isosorbide Mononitrate ER [Imdur] 30 mg PO DAILY 03/14/21 01/15/24 History Metoprolol Tartrate [Lopressor] 50 mg PO BID 03/14/21 01/15/24 History Omeprazole 20 mg PO BID 03/14/21 01/15/24 History amLODIPine [Norvasc] 10 mg PO DAILY 03/14/21 01/15/24 History hydrALAZINE HCL [Apresoline] 50 mg PO AC-TID 03/14/21 01/15/24 History hydroCHLOROthiazide [Hydrodiuril] 25 mg PO DAILY 03/14/21 01/15/24 History cloNIDine HCL [Catapres] 0.1 mg PO BID 01/15/24 01/15/24 History Allergies Allergy/AdvReac Type Severity Reaction Status Date / Time Penicillins Allergy Swelling Verified 01/15/24 18:56 lips Sulfa (Sulfonamide Allergy Anaphylaxis Verified 01/15/24 18:56 Antibiotics) Physical Exam Vitals: Vital Signs Temp Pulse Pulse Resp BP BP Pulse Ox 01/16/24 03:28 98.7 F 63 16 124/79 97 01/15/24 20:00 97.8 F 74 18 143/86 95 01/15/24 18:20 64 18 145/84 97 01/15/24 17:08 71 18 156/98 97 01/15/24 15:36 74 18 139/90 95 01/15/24 14:00 58 L 18 134/93 97 01/15/24 13:00 57 L 18 130/89 98 01/15/24 11:09 97.7 F 57 L 18 178/94 97 Intake and Output 01/15/24 01/16/24 01/16/24 22:59 06:59 14:59 Intake Total 51.577 Balance 51.577 Intake: Intake, IV Titration 51.577 Amount Heparin Sod,Pork in 0.45% 51.577 NaCl 25,000 unit In 0.45 % NaCl 1 250ml.bag @ 9.2 UNITS/KG/HR 10.015 mls/hr IV .Q24H [facility] Rx#: [id number] Other: Voiding Method Toilet Toilet # Voids 1 2 Weight 108.862 kg Results 01/15/24 11:41 01/15/24 11:41 Cardiac Enzymes 01/15/24 01/15/24 01/15/24 Range/Units 11:41 11:41 14:26 AST 39 (17-59) U/L Troponin I <0.012 <0.012 (0.000-0.034) ng/mL 01/15/24 Range/Units 19:00 AST (17-59) U/L Troponin I <0.012 (0.000-0.034) ng/mL Coagulation 01/15/24 01/15/24 Range/Units 11:41 19:00 PT 11.4 (10.0-12.5) sec APTT 26.9 48.2 H (22.0-30.0) sec CBC 01/15/24 Range/Units 11:41 WBC 9.7 (3.8-10.6) k/uL RBC 6.09 H (4.30-5.90) m/uL Hgb 17.6 H (13.0-17.5) gm/dL Hct 53.5 H (39.0-53.0) % Plt Count 237 (150-450) k/uL Comprehensive Metabolic Panel 01/15/24 Range/Units 11:41 Sodium 138 (137-145) mmol/L Potassium 3.7 (3.5-5.1) mmol/L Chloride 102 (98-107) mmol/L Carbon Dioxide 26 (22-30) mmol/L BUN 22 H (9-20) mg/dL Creatinine 0.83 (0.66-1.25) mg/dL Glucose 129 H (74-99) mg/dL Calcium 9.3 (8.4-10.2) mg/dL AST 39 (17-59) U/L ALT 41 (4-49) U/L Alkaline Phosphatase 105 (38-126) U/L Total Protein 7.2 (6.3-8.2) g/dL Albumin 4.3 (3.5-5.0) g/dL Current Medications Generic Name Dose Route Start Last Admin Trade Name Freq PRN Reason Stop Dose Admin Amlodipine Besylate 10 mg 01/16/24 09:00 Amlodipine 10 Mg Tab PO DAILY REESE Clonidine 0.1 mg 01/15/24 21:00 01/15/24 20:33 Clonidine Hcl 0.1 Mg Tab PO 0.1 mg BID REESE Administration Heparin Sodium (Porcine) 0 unit 01/15/24 13:52 Heparin Sodium 1,000 Un/Ml (10ml Vl) IV PER PROTOCOL PRN Low PTT Protocol Hydralazine HCl 50 mg 01/15/24 17:30 01/15/24 18:13 Hydralazine Hcl 50 Mg Tab PO 50 mg AC-TID REESE Administration Hydrochlorothiazide 25 mg 01/16/24 09:00 Hydrochlorothiazide 25 Mg Tab PO DAILY REESE Heparin Sodium/Sodium Chloride 250 mls @ 10.015 mls/hr 01/15/24 14:00 01/15/24 20:51 25,000 unit/ Sodium Chloride IV 0 units/kg/hr .Q24H REESE 0 mls/hr Titration Protocol 9.2 UNITS/KG/HR Isosorbide Mononitrate 30 mg 01/16/24 09:00 Isosorbide Mononitrate Er 30 Mg Tab.Er.24h PO DAILY REESE Metoprolol Tartrate 50 mg 01/15/24 21:00 01/15/24 20:33 Metoprolol Tartrate 50 Mg Tab PO 50 mg BID REESE Administration Naloxone HCl 0.2 mg 01/15/24 13:52 Naloxone 0.4 Mg/Ml 1 Ml Vial IV Q2M PRN Opioid Reversal Pantoprazole Sodium 40 mg 01/15/24 21:00 01/15/24 20:33 Pantoprazole 40 Mg Tablet PO 40 mg BID REESE Administration Intake and Output 01/15/24 01/16/24 01/16/24 22:59 06:59 14:59 Intake Total 51.577 Balance 51.577 Intake: Intake, IV Titration 51.577 Amount Heparin Sod,Pork in 0.45% 51.577 NaCl 25,000 unit In 0.45 % NaCl 1 250ml.bag @ 9.2 UNITS/KG/HR 10.015 mls/hr IV .Q24H [facility] Rx#: [id number] Other: Voiding Method Toilet Toilet # Voids 1 2 Weight 108.862 kg 01/15/24 11:41 01/15/24 11:41
[2024-01-16 08:25] LABS: Basophils # (A) 0.05 X 10*3/uL (0.00-0.10); Basophils % (A) 0.5 %; Eosinophils # (A) 0.15 X 10*3/uL (0.04-0.35); Eosinophils % (A) 1.5 %; HGB 18.6 g/dL (13.0-17.0); Lymphocytes # (A) 1.69 X 10*3/uL (0.90-5.00); Lymphocytes % (A) 17.4 %; MCH 29.1 pg (27.0-32.0); MCHC 34.4 g/dL (32.0-37.0); MCV 84.4 FL (80.0-97.0); Mean Platelet Volume 9.8 FL (9.5-12.2); Monocytes # (A) 0.95 X 10*3/uL (0.20-1.00); Monocytes % (A) 9.8 %; NRBC Per 100 WBC 0 X 10*3/uL (0.00-0.01); Neutrophils # (A) 6.84 X 10*3/uL (1.80-7.70); Neutrophils % (A) 70.4 %; Platelet Count 217 X 10*3/uL (140-440); RDW 14.6 % (11.5-14.5); WBC 9.72 X 10*3/uL (4.50-10.00)
[2024-01-16] MEDS: amLODIPine 10 MG TAB PO SCH (08:45)
[2024-01-16] MEDS: ISOSORBIDE MONONITRATE ER 30 MG TAB.ER.24H PO SCH (08:45)
[2024-01-16 08:52] LABS: Blood Urea Nitrogen 17.3 mg/dL (9.0-27.0); Carbon Dioxide 27.1 mmol/L (21.6-31.8); Chloride 99 mmol/L (96-109); Glucose 123 mg/dL (70-110); Potassium 3.5 mmol/L (3.5-5.5); Sodium 141 mmol/L (135-145)
[2024-01-16 08:53] LABS: ALT 42 U/L (10-49); AST 36 U/L (14-35); Albumin 4.1 g/dL (3.8-4.9); Albumin/Globulin Ratio 1.52 Ratio (1.60-3.17); Alkaline Phosphatase 97 U/L (41-126); Calcium 9.2 mg/dL (8.7-10.3); Globulin 2.7 g/dL (1.6-3.3); Total Bilirubin 0.9 mg/dL (0.3-1.2); Total Protein 6.8 g/dL (6.2-8.2)
[2024-01-16 09:29] LABS: INR 1.13 sec (0.93-1.11); Prothrombin Time 12.1 sec (9.9-11.9)
--- NOTE | 2024-01-16 10:12 | CA ---
Transthoracic Echo Report Name: Mikael Berg Age: 73 Gender: M : 1950 Exam Date: 01/16/2024 07:39 Exam Location: [facility] Ht (in): 72 Wt (lb): 240 Ordering Physician: Nando Macdonald MD ([id number]) Attending/Referring Phys: Renae HUNTLEY System Administrator Melyssa Alcantar RDCS Procedure CPT: Indications: New onset afib Cardiac Hx: Technical Quality: Fair Contrast 1: Total Dose (mL): Contrast 2: Total Dose (mL): MEASUREMENTS (Male / Female) Normal Values 2D ECHO LV Diastolic Diameter PLAX 3.8 cm 4.2 - 5.9 / 3.9 - 5.3 cm LV Systolic Diameter PLAX 2.3 cm IVS Diastolic Thickness 1.3 cm 0.6 - 1.0 / 0.6 - 0.9 cm LVPW Diastolic Thickness 1.3 cm 0.6 - 1.0 / 0.6 - 0.9 cm LV Relative Wall Thickness 0.7 RV Internal Dim ED PLAX 2.2 cm LA Systolic Diameter LX 4.1 cm 3.0 - 4.0 / 2.7 - 3.8 cm LV Diastolic Volume MOD BP 63.5 cm??? 67 - 155 / 56 - 104 cm??? LV Systolic Volume MOD BP 26.4 cm??? 22 - 58 / 19 - 49 cm??? LV Ejection Fraction MOD BP 58.5 % >= 55 % LV Diastolic Volume MOD 4C 69.6 cm??? LV Systolic Volume MOD 4C 27.0 cm??? LV Ejection Fraction MOD 4C 61.2 % LV Diastolic Length 4C 7.2 cm LV Systolic Length 4C 6.3 cm LV Diastolic Volume MOD 2C 51.2 cm??? LV Systolic Volume MOD 2C 23.9 cm??? LV Ejection Fraction MOD 2C 53.2 % LV Diastolic Length 2C 6.2 cm LV Systolic Length 2C 5.7 cm LA Volume 65.6 cm??? 18 - 58 / 22 - 52 cm??? LA Volume Index 27.5 cm???/m??? 16 - 28 cm???/m??? M-MODE Aortic Root Diameter MM 3.0 cm LA Systolic Diameter MM 4.6 cm LA Ao Ratio MM 1.5 AV Cusp Separation MM 2.0 cm DOPPLER AV Peak Velocity 151.6 cm/s AV Peak Gradient 9.2 mmHg AI Peak Velocity 163.8 cm/s AI Peak Gradient 10.7 mmHg AI Pressure Half Time 789.9 ms TR Peak Velocity 220.5 cm/s TR Peak Gradient 19.4 mmHg FINDINGS Left Ventricle Left ventricular ejection fraction is estimated at 55-60 %. Mildly increased septal wall thickness. Left ventricular cavity size normal. No obvious regional wall motion abnormalities. Right Ventricle Normal right ventricular size and function. Right ventricular systolic pressure within normal limits. Right Atrium Mild right atrial dilatation. Left Atrium Mildly increased left atrial diameter. Mildly increased left atrial volume. Mildly increased left atrial area. Mitral Valve Structurally normal mitral valve. Mild mitral regurgitation. No mitral stenosis. Aortic Valve Trileaflet aortic valve. trace aortic regurgitation. No aortic stenosis. Tricuspid Valve Structurally normal tricuspid valve. Mild tricuspid regurgitation. Pulmonic Valve Structurally normal pulmonic valve. Trace pulmonic regurgitation. Pericardium No pericardial or pleural effusion. Aorta Normal size aortic root and proximal ascending aorta. CONCLUSIONS Normal LV function Mild mitral regurgitation Trace aortic regurgitation Previewed by: Dr. Nando Macdonald MD (Electronically Signed) Final Date: 16 January 2024 10:11
[2024-01-16] MEDS: hydroCHLOROthiazide 25 MG TAB PO SCH (11:03)
--- NOTE | 2024-01-16 11:51 | US ---
EXAMINATION TYPE: US kidneys/renal and bladder DATE OF EXAM: 01/16/2024 Exam done portable COMPARISON: CT 2023, US 2019 CLINICAL INDICATION: Male, 73 years old with history of hematuria; Patient on heparin and started to have hematuria EXAM MEASUREMENTS: Right Kidney: 13.3 x 6.2 x 6.3 cm Left Kidney: 14.8 x 5.6 x 7.0 cm Right Kidney: multiple cysts, largest measuring 8.0 x 6.5 x 7.1cm cyst superior pole, 1.0cm echogenic focus mid pole Left Kidney: multiple cysts, largest measuring 7.9 x 6.2 x 5.8cm superior pole, 1.0cm echogenic focus mid pole Bladder: wnl Bilateral Jets seen: no Gallbladder: cholelithiasis There is no evidence for hydronephrosis at this point in time. No nephrolithiasis is seen. No douglas s are identified. The urinary bladder is anechoic. Bilateral ureteral jets are seen. IMPRESSION: 1. No evidence for obstructive uropathy. 2. Nonobstructing bilateral renal calculi 3. Bilateral renal simple appearing cysts.
--- NOTE | 2024-01-16 13:20 | P.HPIM ---
History of Present Illness H&P Date: 01/16/24 Mikael Berg, is a 73-year-old male who presented to [facility] emergency room with a chief complaint of chest tightness and shortness of breath He was evaluated in the emergency room vital examination on presentation revealed a temperature of 97.7 pulse 57 respiration 18 blood pressure 178/94 pulse ox 97% on room air Laboratory data reveals a white blood count of 9.7 hemoglobin 17.6 platelet count 237 D-dimer 0.6 BUN 22 creatinine 0.83 troponin level 0.012 BNP 1250 Testing in the emergency room revealed EKG revealed atrial fibrillation heart rate 66 chest x-ray revealed no acute cardiopulmonary disease, CT angiogram of the chest revealed mild aneurysmal dilatation of the ascending thoracic aorta measuring 4 cm Patient was admitted to medical floor for further evaluation and treatment Past Medical History Past Medical History: Hypertension Additional Past Medical History / Comment(s): ankylosing spondylitis, arthritis, kindey stones, hital hernia current 2023, KOI, ulcer History of Any Multi-Drug Resistant Organisms: None Reported Past Surgical History: No Surgical Hx Reported Additional Past Surgical History / Comment(s): kidney stones with lithrotripsy Past Psychological History: No Psychological Hx Reported Smoking Status: Never smoker Past Alcohol Use History: None Reported Past Drug Use History: None Reported Medications and Allergies Home Medications Medication Instructions Recorded Confirmed Type Ergocalciferol (Vitamin D2) 1,250 mcg PO YOST 03/14/21 01/15/24 History [Drisdol (50,000 Iu)] Isosorbide Mononitrate ER [Imdur] 30 mg PO DAILY 03/14/21 01/15/24 History Metoprolol Tartrate [Lopressor] 50 mg PO BID 03/14/21 01/15/24 History Omeprazole 20 mg PO BID 03/14/21 01/15/24 History amLODIPine [Norvasc] 10 mg PO DAILY 03/14/21 01/15/24 History hydrALAZINE HCL [Apresoline] 50 mg PO AC-TID 03/14/21 01/15/24 History hydroCHLOROthiazide [Hydrodiuril] 25 mg PO DAILY 03/14/21 01/15/24 History cloNIDine HCL [Catapres] 0.1 mg PO BID 01/15/24 01/15/24 History Allergies Allergy/AdvReac Type Severity Reaction Status Date / Time Penicillins Allergy Swelling Verified 01/15/24 18:56 lips Sulfa (Sulfonamide Allergy Anaphylaxis Verified 01/15/24 18:56 Antibiotics) Physical Exam Vitals: Vital Signs Temp Pulse Pulse Resp BP BP BP 01/16/24 07:00 97.8 F 65 16 157/94 01/16/24 03:28 98.7 F 63 16 124/79 01/15/24 20:00 97.8 F 74 18 143/86 01/15/24 18:20 64 18 145/84 01/15/24 17:08 71 18 156/98 01/15/24 15:36 74 18 139/90 01/15/24 14:00 58 L 18 134/93 01/15/24 13:00 57 L 18 130/89 01/15/24 11:09 97.7 F 57 L 18 178/94 Pulse Ox 01/16/24 07:00 97 01/16/24 03:28 97 01/15/24 20:00 95 01/15/24 18:20 97 01/15/24 17:08 97 01/15/24 15:36 95 01/15/24 14:00 97 01/15/24 13:00 98 01/15/24 11:09 97 Intake and Output 01/15/24 01/16/24 01/16/24 22:59 06:59 14:59 Intake Total 51.577 Balance 51.577 Intake: Intake, IV Titration 51.577 Amount Heparin Sod,Pork in 0.45% 51.577 NaCl 25,000 unit In 0.45 % NaCl 1 250ml.bag @ 9.2 UNITS/KG/HR 10.015 mls/hr IV .Q24H [facility] Rx#: [id number] Other: Voiding Method Toilet Toilet # Voids 1 2 Weight 108.862 kg In general patient is alert and oriented x 3 in no distress HEENT head normocephalic and atraumatic Neck is supple no JVD no goiter no lymphadenopathy no carotid bruit Chest examination is clear to auscultation no crackles no wheezing Cardiac exam reveals irregular heart sounds S1 and S2 no gallops no murmurs Abdomen is soft nontender no organomegaly with normal bowel sounds Extremity exam reveals no edema no cyanosis or clubbing Neurological examination reveals no gross focal deficits Results CBC & Chem 7: 01/16/24 05:10 01/16/24 05:10 Labs: Abnormal Lab Results - Last 24 Hours (Table) 01/15/24 01/15/24 01/15/24 Range/Units 11:41 11:41 11:41 RBC 6.09 H (4.30-5.90) m/uL Hgb 17.6 H (13.0-17.5) gm/dL Hct 53.5 H (39.0-53.0) % RDW (11.5-14.5) % PT (9.9-11.9) sec INR (0.93-1.11) sec APTT (22.0-30.0) sec D-Dimer 0.60 H (<0.60) mg/L FEU Anion Gap (4.00-12.00) mmol/L BUN (9-20) mg/dL Glucose (74-99) mg/dL AST (14-35) U/L Albumin/Globulin Ratio (1.60-3.17) Ratio Urine Protein Trace H (Negative) 01/15/24 01/15/24 01/16/24 Range/Units 11:41 19:00 05:05 RBC (4.30-5.90) m/uL Hgb (13.0-17.5) gm/dL Hct (39.0-53.0) % RDW (11.5-14.5) % PT 12.1 H (9.9-11.9) sec INR 1.13 H (0.93-1.11) sec APTT 48.2 H (22.0-30.0) sec D-Dimer (<0.60) mg/L FEU Anion Gap (4.00-12.00) mmol/L BUN 22 H (9-20) mg/dL Glucose 129 H (74-99) mg/dL AST (14-35) U/L Albumin/Globulin Ratio (1.60-3.17) Ratio Urine Protein (Negative) 01/16/24 01/16/24 Range/Units 05:10 05:10 RBC 6.40 H (4.30-5.90) m/uL Hgb 18.6 H (13.0-17.5) gm/dL Hct 54.0 H (39.0-53.0) % RDW 14.6 H (11.5-14.5) % PT (9.9-11.9) sec INR (0.93-1.11) sec APTT (22.0-30.0) sec D-Dimer (<0.60) mg/L FEU Anion Gap 14.90 H (4.00-12.00) mmol/L BUN (9-20) mg/dL Glucose 123 H (74-99) mg/dL AST 36 H (14-35) U/L Albumin/Globulin Ratio 1.52 L (1.60-3.17) Ratio Urine Protein (Negative) Thrombosis Risk Factor Assmnt - Choose All That Apply Any of the Below Risk Factors Present?: Yes Each Factor Represents 1 point: Obesity (BMI >25) Other Risk Factors: Yes Each Risk Factor Represents 2 Points: Age 61-74 years Other congenital or acquired thrombophilia - If yes, enter type in comment: No Thrombosis Risk Factor Assessment Total Risk Factor Score: 3 Thrombosis Risk Factor Assessment Level: Moderate Risk Assessment and Plan Plan: Chest tightness New onset atrial fibrillation with controlled ventricular response Hematuria, started after initiating IV heparin protocol, IV heparin was discontinued and urology consultation requested Underlying history of hypertension Underlying history of ankylosing spondylitis Underlying history of osteoarthritis Previous history of kidney stones with lithotripsy Patient was admitted to telemetry floor Home medications reviewed and reordered Serial EKG and cardiac enzymes ordered He was started on IV heparin protocol which was later discontinued due to hematuria Cardiology and urology consultation requested Kidney ultrasound ordered Will follow closely
--- NOTE | 2024-01-16 16:20 | P.GSCN ---
History of Present Illness Consult date: 01/16/24 Reason for Consult: This is a 73-year-old male admitted to the hospital with with chest pain and atrial fibrillation. Urology is consulted for gross hematuria. It was noticed patient started having gross hematuria following initiation of a heparin drip, subsequently heparin drip was discontinued and his any gross hematuria has resolved. Denies any previous history of gross hematuria. Denies any voiding difficulties at baseline. Does have a previous history of kidney stones, previously followed up with Dr. Mckinnon. Indicated last episode of stone was more than 5 years ago. No known family history of bladder or renal malignancies. He did undergo a renal bladder ultrasound that showed no evidence of hydronephrosis. His hemoglobin is stable and he is currently not on any anticoagulation Review of Systems - Constitutional Denies fever, Denies weight loss - Cardiovascular Denies chest pain, Denies shortness of breath - Respiratory Denies cough, Denies 7 - Gastrointestinal Reports as per HPI - Genitourinary Reports kidney stones, Denies dysuria, Denies flank pain - Neurological Denies headaches, Denies syncope Past Medical History Past Medical History: Hypertension Additional Past Medical History / Comment(s): ankylosing spondylitis, arthritis, kindey stones, hital hernia current 2023, ORUTSARARMIUT, ulcer History of Any Multi-Drug Resistant Organisms: None Reported Past Surgical History: No Surgical Hx Reported Additional Past Surgical History / Comment(s): kidney stones with lithrotripsy Past Psychological History: No Psychological Hx Reported Smoking Status: Never smoker Past Alcohol Use History: None Reported Past Drug Use History: None Reported Medications and Allergies Home Medications Medication Instructions Recorded Confirmed Type Ergocalciferol (Vitamin D2) 1,250 mcg PO YOST 03/14/21 01/15/24 History [Drisdol (50,000 Iu)] Isosorbide Mononitrate ER [Imdur] 30 mg PO DAILY 03/14/21 01/15/24 History Metoprolol Tartrate [Lopressor] 50 mg PO BID 03/14/21 01/15/24 History Omeprazole 20 mg PO BID 03/14/21 01/15/24 History amLODIPine [Norvasc] 10 mg PO DAILY 03/14/21 01/15/24 History hydrALAZINE HCL [Apresoline] 50 mg PO AC-TID 03/14/21 01/15/24 History hydroCHLOROthiazide [Hydrodiuril] 25 mg PO DAILY 03/14/21 01/15/24 History cloNIDine HCL [Catapres] 0.1 mg PO BID 01/15/24 01/15/24 History Allergies Allergy/AdvReac Type Severity Reaction Status Date / Time Penicillins Allergy Swelling Verified 01/15/24 18:56 lips Sulfa (Sulfonamide Allergy Anaphylaxis Verified 01/15/24 18:56 Antibiotics) Surgical - Exam Vital Signs Temp Pulse Resp BP Pulse Ox 97.7 F 57 L 18 178/94 97 01/15/24 11:09 01/15/24 11:09 01/15/24 11:09 01/15/24 11:01/15/24 11:09 - General no distress, no pain - Eyes normal ocular movement, no pale - ENT normal nares, normal mucosa - Respiratory normal expansion, normal respiratory effort - Abdomen Abdomen: soft, non tender, no distended - Psychiatric oriented to time, oriented to person, oriented to place Results - Labs 01/16/24 05:10 01/16/24 05:10 Abnormal Lab Results - Last 24 Hours (Table) 01/15/24 01/16/24 01/16/24 Range/Units 19:00 05:05 05:10 RBC 6.40 H (4.40-5.60) X 10*6/uL Hgb 18.6 H (13.0-17.0) g/dL Hct 54.0 H (39.6-50.0) % RDW 14.6 H (11.5-14.5) % PT 12.1 H (9.9-11.9) sec INR 1.13 H (0.93-1.11) sec APTT 48.2 H (22.0-30.0) sec Anion Gap (4.00-12.00) mmol/L Glucose (70-110) mg/dL AST (14-35) U/L Albumin/Globulin Ratio (1.60-3.17) Ratio 01/16/24 Range/Units 05:10 RBC (4.40-5.60) X 10*6/uL Hgb (13.0-17.0) g/dL Hct (39.6-50.0) % RDW (11.5-14.5) % PT (9.9-11.9) sec INR (0.93-1.11) sec APTT (22.0-30.0) sec Anion Gap 14.90 H (4.00-12.00) mmol/L Glucose 123 H (70-110) mg/dL AST 36 H (14-35) U/L Albumin/Globulin Ratio 1.52 L (1.60-3.17) Ratio Diabetes panel 01/16/24 Range/Units 05:10 Sodium 141 (135-145) mmol/L Potassium 3.5 (3.5-5.5) mmol/L Chloride 99 (96-109) mmol/L Carbon Dioxide 27.1 (21.6-31.8) mmol/L BUN 17.3 (9.0-27.0) mg/dL Creatinine 1.0 (0.6-1.5) mg/dL Glucose 123 H (70-110) mg/dL Calcium 9.2 (8.7-10.3) mg/dL AST 36 H (14-35) U/L ALT 42 (10-49) U/L Alkaline Phosphatase 97 (41-126) U/L Total Protein 6.8 (6.2-8.2) g/dL Albumin 4.1 (3.8-4.9) g/dL Thyroid panel 01/16/24 Range/Units 05:10 TSH 1.590 (0.350-5.500) UIU/ML Calcium panel 01/16/24 Range/Units 05:10 Calcium 9.2 (8.7-10.3) mg/dL Albumin 4.1 (3.8-4.9) g/dL Pituitary panel 01/16/24 01/16/24 Range/Units 05:10 05:10 Sodium 141 (135-145) mmol/L Potassium 3.5 (3.5-5.5) mmol/L Chloride 99 (96-109) mmol/L Carbon Dioxide 27.1 (21.6-31.8) mmol/L BUN 17.3 (9.0-27.0) mg/dL Creatinine 1.0 (0.6-1.5) mg/dL Glucose 123 H (70-110) mg/dL Calcium 9.2 (8.7-10.3) mg/dL TSH 1.590 (0.350-5.500) UIU/ML Adrenal panel 01/16/24 Range/Units 05:10 Sodium 141 (135-145) mmol/L Potassium 3.5 (3.5-5.5) mmol/L Chloride 99 (96-109) mmol/L Carbon Dioxide 27.1 (21.6-31.8) mmol/L BUN 17.3 (9.0-27.0) mg/dL Creatinine 1.0 (0.6-1.5) mg/dL Glucose 123 H (70-110) mg/dL Calcium 9.2 (8.7-10.3) mg/dL Total Bilirubin 0.9 (0.3-1.2) mg/dL AST 36 H (14-35) U/L ALT 42 (10-49) U/L Alkaline Phosphatase 97 (41-126) U/L Total Protein 6.8 (6.2-8.2) g/dL Albumin 4.1 (3.8-4.9) g/dL Assessment and Plan Assessment: 73-year-old male with gross hematuria following initiation of heparin drip for A-fib. No previous history of gross hematuria, gross hematuria resolved following discontinuation of anticoagulation. Discussed with him given the g ross hematuria he will require a gross hematuria workup including a CT urogram during the hospital admission and cystoscopy as an outpatient. From urology standpoint given the resolution the heparin drip can be restarted, and if his urine remains clear for 24 to 48 hours then he is okay to start p.o. anticoagulation from urology standpoint
--- NOTE | 2024-01-16 17:43 | CT ---
EXAMINATION TYPE: CT urogram wo/w con CT DLP: 3261 mGycm, Automated exposure control for dose reduction was used. DATE OF EXAM: 01/16/2024 5:26 PM COMPARISON: Ultrasound 01/16/2024 CLINICAL INDICATION:Male, 73 years old with history of Gross hematuria; PHH, hematuria TECHNIQUE: Urogram with imaging of the abdomen and pelvis. Coronal and sagittal reformats were performed. 2D and 3D reconstructions are performed to assist visualization of the urinary tract on a separate workstat ion. Contrast used:100 cc mL of Isovue 300 without and with IV Contrast, Oral contrast used: None. FINDINGS: LOWER CHEST: No significant findings. GENITOURINARY: RIGHT KIDNEY AND URETER: r calculi measuring up to 7 mm. No obstructing ureteral calculi. No hydronep hrosis or hydroureter. No solid renal masses, simple appearing renal cysts No urothelial lesions: no filling defect, dilation, stricture or wall thickening. Renal cortical cyst measuring up to 8.3 cm. LEFT KIDNEY AND URETER: Calculi up tor 12 x 8 mm.. No hydronephrosis or hydroureter. No renal mass or other lesions. No urothelial lesions: no filling defect, dilation, stricture or wall thickening. Antonio al cortical cyst measuring up to 6.7 cm. URINARY BLADDER: Well distended. Limited evaluation secondary to partial filling of the bladder with excreted IV contrast. No calculi or obvious mass. REPRODUCTIVE: Prostate is enlarged in size measuring 6.4 cm in transverse dimension. ABDOMEN LIVER: Unremarkable. GALLBLADDER AND BILE DUCTS: Unremarkable PANCREAS: Unremarkable. SPLEEN: Unremarkable. ADRENAL GLANDS: Unremarkable. STOMACH AND BOWEL: . No evidence of bowel obstruction. Scattered colonic diverticula. PERITONEUM: No evidence of pneumoperitoneum, free fluid, or adenopathy. VASCULATURE: No evidence of aortic aneurysm. MUSCULOSKELETAL: No acute osseous abnormalities LYMPH NODES: No gross evidence for lymphadenopathy. SOFT TISSUE/ABDOMINAL WALL: Fat-containing right inguinal hernia. IMPRESSION: 1. Bilateral nonobstructing renal calculi. 2. Bilateral simple appearing renal cortical cysts. 3. No evidence for hydronephrosis or solid renal mass. 4. Prostatomegaly correlate with serum PSA.
[2024-01-16] MEDS: HEPARIN SODIUM 1,000 UN/ML (10ML VL) IV ONE (18:00)
[2024-01-16] MEDS: HEPARIN SOD,PORK IN 0.45% NACL 25,000 UNIT in 0.45% NACL 1 250ML.BAG IV SCH (18:08)
[2024-01-17 00:47] LABS: INR 1.1 (<1.2); Partial Thromboplastin Time 43.4 sec (22.0-30.0); Prothrombin Time 11.8 sec (10.0-12.5)
[2024-01-17] MEDS: HEPARIN SODIUM 1,000 UN/ML (10ML VL) IV PRN (01:14)
[2024-01-17 10:10] LABS: Basophils # (A) 0.07 X 10*3/uL (0.00-0.10); Basophils % (A) 0.7 %; Eosinophils # (A) 0.23 X 10*3/uL (0.04-0.35); Eosinophils % (A) 2.4 %; HCT 52.2 % (39.6-50.0); HGB 17.5 g/dL (13.0-17.0); Lymphocytes # (A) 2.05 X 10*3/uL (0.90-5.00); Lymphocytes % (A) 21.5 %; MCHC 33.5 g/dL (32.0-37.0); MCV 86.4 FL (80.0-97.0); Mean Platelet Volume 10.3 FL (9.5-12.2); Monocytes # (A) 0.88 X 10*3/uL (0.20-1.00); Monocytes % (A) 9.2 %; NRBC Per 100 WBC 0 X 10*3/uL (0.00-0.01); Neutrophils # (A) 6.28 X 10*3/uL (1.80-7.70); Neutrophils % (A) 65.8 %; Platelet Count 244 X 10*3/uL (140-440); RBC 6.04 X 10*6/uL (4.40-5.60); RDW 14.4 % (11.5-14.5); WBC 9.55 X 10*3/uL (4.50-10.00)
--- NOTE | 2024-01-17 10:27 | P.PN ---
Subjective Progress Note Date: 01/17/24 Mikael Berg, is a 73-year-old male who presented to [facility] emergency room with a chief complaint of chest tightness and shortness of breath He was evaluated in the emergency room vital examination on presentation revealed a temperature of 97.7 pulse 57 respiration 18 blood pressure 178/94 pulse ox 97% on room air Laboratory data reveals a white blood count of 9.7 hemoglobin 17.6 platelet count 237 D-dimer 0.6 BUN 22 creatinine 0.83 troponin level 0.012 BNP 1250 Testing in the emergency room revealed EKG revealed atrial fibrillation heart rate 66 chest x-ray revealed no acute cardiopulmonary disease, CT angiogram of the chest revealed mild aneurysmal dilatation of the ascending thoracic aorta measuring 4 cm Patient was admitted to medical floor for further evaluation and treatment On 01/17/2024 patient was seen and examined on the medical floor, he is alert and oriented x 3 in no apparent distress, he is still complaining of episodes of chest tightness , there is no fever or chills, no headache or dizziness no chest pain no shortness of breath no cough, no nausea or vomiting no abdominal pain no diarrhea and no urinary symptoms. Patient was restarted on IV heparin per protocol, he did not have any new episodes of hematuria, CT urogram, revealed evidence of kidney stones, without obstruction, no masses or hydronephrosis. At this time awaiting further evaluation and recommendation from cardiology. Objective - Vital Signs Vital signs: Vital Signs Temp 97.4 F L 01/17/24 07:00 Pulse 59 L 01/17/24 07:00 Resp 16 01/17/24 07:00 BP 168/79 01/17/24 07:00 Pulse Ox 96 01/17/24 07:00 FiO2 Intake & Output 01/16/24 01/17/24 01/17/24 18:59 06:59 18:59 Intake Total 836 70.833 Balance 836 70.833 Intake: Intake, IV Titration 70.833 Amount Heparin Sod,Pork in 0.45% 70.833 NaCl 25,000 unit In 0.45 % NaCl 1 250ml.bag @ 9. 186 UNITS/KG/HR 10 mls/hr IV .Q24H [facility] Rx#: [id number] Oral 836 Other: Voiding Method Toilet Toilet # Voids 3 4 # Bowel Movements 2 - Exam In general patient is alert and oriented x 3 in no distress HEENT head normocephalic and atraumatic Neck is supple no JVD no goiter no lymphadenopathy no carotid bruit Chest examination is clear to auscultation no crackles no wheezing Cardiac exam reveals irregular heart sounds S1 and S2 no gallops no murmurs Abdomen is soft nontender no organomegaly with normal bowel sounds Extremity exam reveals no edema no cyanosis or clubbing Neurological examination reveals no gross focal deficits - Labs CBC & Chem 7: 01/17/24 06:10 01/16/24 05:10 Labs: Abnormal Lab Results - Last 24 Hours (Table) 01/17/24 01/17/24 Range/Units 00:22 06:10 APTT 43.4 H 59.5 H (22.0-30.0) sec Assessment and Plan Plan: Chest tightness New onset atrial fibrillation with controlled ventricular response Hematuria, started after initiating IV heparin protocol, IV heparin was discontinued and urology consultation requested Underlying history of hypertension Underlying history of ankylosing spondylitis Underlying history of osteoarthritis Previous history of kidney stones with lithotripsy Patient was admitted to telemetry floor Home medications reviewed and reordered Serial EKG and cardiac enzymes ordered He was started on IV heparin protocol which was later discontinued due to hematuria Cardiology and urology consultation requested Kidney ultrasound ordered Will follow closely
--- NOTE | 2024-01-17 12:05 | P.PN ---
Subjective Progress Note Date: 01/17/24 Principal diagnosis: Recent diagnosis of atrial fibrillation The patient is a pleasant 73-year-old gentleman with a past medical history significant for hypertension and dyslipidemia who was admitted to the hospital with atrial fibrillation which is a new diagnosis to the patient. The echo showed normal LV systolic function. Acute coronary event was ruled out by normal troponin. January 17, 2024 The patient was seen and evaluated. He continues to be experiencing intermittent episodes of palpitations/heart racing and he remains in atrial fibrillation with controlled heart rate on the current medical regimen. He also reports intermittent episodes of atypical chest discomfort appears to be of very short duration. Currently his chest pain-free. Currently is on heparin IV. He is not having any more hematuria. He was seen by the urology service. I am going to stop the heparin and start the patient on oral anticoagulation. Monitor the patient. He need to undergo a stress test either as an inpatient or outpatient depends on his clinical course and for any more episode of chest discomfort. The examination is remarkable for irregular rhythm with clear breathing sounds bilaterally and no edema was noted in the lower extremities Assessment Atrial fibrillation with controlled heart rate Multiple comorbid conditions including hypertension and dyslipidemia Chest discomfort Plan DC heparin and start the patient on oral anticoagulation Continue the current medical regimen Rule out severe CAD either as an inpatient or outpatient depending on the clinical course Follow-up with the patient Objective - Vital Signs Vital signs: Vital Signs Temp 97.4 F L 01/17/24 07:00 Pulse 59 L 01/17/24 08:00 Resp 16 01/17/24 08:00 BP 168/79 01/17/24 07:00 Pulse Ox 96 01/17/24 07:00 FiO2 Intake & Output 01/16/24 01/17/24 01/17/24 18:59 06:59 18:59 Intake Total 836 70.833 600 Balance 836 70.833 600 Intake: Intake, IV Titration 70.833 Amount Heparin Sod,Pork in 0.45% 70.833 NaCl 25,000 unit In 0.45 % NaCl 1 250ml.bag @ 9. 186 UNITS/KG/HR 10 mls/hr IV .Q24H [facility] Rx#: [id number] Oral 836 600 Other: Voiding Method Toilet Toilet Toilet # Voids 3 4 # Bowel Movements 2 - Labs CBC & Chem 7: 01/17/24 06:10 01/16/24 05:10 Labs: Abnormal Lab Results - Last 24 Hours (Table) 01/17/24 01/17/24 01/17/24 Range/Units 00:22 06:10 06:10 RBC 6.04 H (4.40-5.60) X 10*6/uL Hgb 17.5 H (13.0-17.0) g/dL Hct 52.2 H (39.6-50.0) % APTT 43.4 H 59.5 H (22.0-30.0) sec
[2024-01-17] MEDS: APIXABAN 5 MG TAB PO SCH (21:22)
[2024-01-18 09:49] LABS: Basophils # (A) 0.05 X 10*3/uL (0.00-0.10); Basophils % (A) 0.5 %; Eosinophils # (A) 0.18 X 10*3/uL (0.04-0.35); HCT 56.2 % (39.6-50.0); HGB 18.4 g/dL (13.0-17.0); Lymphocytes # (A) 1.73 X 10*3/uL (0.90-5.00); Lymphocytes % (A) 18.7 %; MCH 28.8 pg (27.0-32.0); MCHC 32.7 g/dL (32.0-37.0); MCV 87.9 FL (80.0-97.0); Mean Platelet Volume 9.9 FL (9.5-12.2); Monocytes # (A) 0.91 X 10*3/uL (0.20-1.00); Monocytes % (A) 9.9 %; NRBC Per 100 WBC 0 X 10*3/uL (0.00-0.01); Neutrophils # (A) 6.33 X 10*3/uL (1.80-7.70); Neutrophils % (A) 68.6 %; Platelet Count 234 X 10*3/uL (140-440); RBC 6.39 X 10*6/uL (4.40-5.60); RDW 15.3 % (11.5-14.5); WBC 9.23 X 10*3/uL (4.50-10.00)
[2024-01-18 09:55] LABS: BUN/Creat Ratio 15.73 Ratio (12.00-20.00); Blood Urea Nitrogen 17.3 mg/dL (9.0-27.0); Carbon Dioxide 26.6 mmol/L (21.6-31.8); Chloride 98 mmol/L (96-109); Glucose 131 mg/dL (70-110); Potassium 3.7 mmol/L (3.5-5.5); Sodium 140 mmol/L (135-145)
[2024-01-18 09:56] LABS: ALT 36 U/L (10-49); AST 38 U/L (14-35); Albumin 4.1 g/dL (3.8-4.9); Albumin/Globulin Ratio 1.58 Ratio (1.60-3.17); Alkaline Phosphatase 97 U/L (41-126); Calcium 9.6 mg/dL (8.7-10.3); Globulin 2.6 g/dL (1.6-3.3); Total Bilirubin 0.8 mg/dL (0.3-1.2); Total Protein 6.7 g/dL (6.2-8.2)
--- NOTE | 2024-01-18 10:05 | P.PN ---
Subjective Progress Note Date: 01/18/24 Mikael Berg, is a 73-year-old male who presented to [facility] emergency room with a chief complaint of chest tightness and shortness of breath He was evaluated in the emergency room vital examination on presentation revealed a temperature of 97.7 pulse 57 respiration 18 blood pressure 178/94 pulse ox 97% on room air Laboratory data reveals a white blood count of 9.7 hemoglobin 17.6 platelet count 237 D-dimer 0.6 BUN 22 creatinine 0.83 troponin level 0.012 BNP 1250 Testing in the emergency room revealed EKG revealed atrial fibrillation heart rate 66 chest x-ray revealed no acute cardiopulmonary disease, CT angiogram of the chest revealed mild aneurysmal dilatation of the ascending thoracic aorta measuring 4 cm Patient was admitted to medical floor for further evaluation and treatment On 01/17/2024 patient was seen and examined on the medical floor, he is alert and oriented x 3 in no apparent distress, he is still complaining of episodes of chest tightness , there is no fever or chills, no headache or dizziness no chest pain no shortness of breath no cough, no nausea or vomiting no abdominal pain no diarrhea and no urinary symptoms. Patient was restarted on IV heparin per protocol, he did not have any new episodes of hematuria, CT urogram, revealed evidence of kidney stones, without obstruction, no masses or hydronephrosis. At this time awaiting further evaluation and recommendation from cardiology. On 01/18/2024 patient was seen and examined on the medical floor, he is alert and oriented x 3 in no apparent distress, he still has episodes of chest tightness, and palpitations, otherwise he denies any complaints there is no fever or chills no headache or dizziness no shortness of breath no cough no nausea or vomiting no abdominal pain no diarrhea and no urinary symptoms, cardiology input reviewed, will schedule stress test for a.m. tomorrow, if negative patient can be discharged to home tomorrow Objective - Vital Signs Vital signs: Vital Signs Temp 97.5 F L 01/18/24 06:24 Pulse 68 01/18/24 06:24 Resp 18 01/18/24 06:24 BP 145/84 01/18/24 06:24 Pulse Ox 96 01/18/24 06:24 FiO2 Intake & Output 06/08/24 06/09/24 06/09/24 18:59 06:59 18:59 Intake Total 600 236 Balance 600 236 Intake: Oral 600 236 Other: Voiding Method Toilet Toilet # Voids 3 3 # Bowel Movements 0 - Exam In general patient is alert and oriented x 3 in no distress HEENT head normocephalic and atraumatic Neck is supple no JVD no goiter no lymphadenopathy no carotid bruit Chest examination is clear to auscultation no crackles no wheezing Cardiac exam reveals irregular heart sounds S1 and S2 no gallops no murmurs Abdomen is soft nontender no organomegaly with normal bowel sounds Extremity exam reveals no edema no cyanosis or clubbing Neurological examination reveals no gross focal deficits - Labs CBC & Chem 7: 01/18/24 06:00 01/18/24 06:00 Labs: Abnormal Lab Results - Last 24 Hours (Table) 01/17/24 01/18/24 01/18/24 Range/Units 06:10 06:00 06:00 RBC 6.04 H 6.39 H (4.40-5.60) X 10*6/uL Hgb 17.5 H 18.4 H (13.0-17.0) g/dL Hct 52.2 H 56.2 H (39.6-50.0) % RDW 15.3 H (11.5-14.5) % Anion Gap 15.40 H (4.00-12.00) mmol/L Glucose 131 H (70-110) mg/dL AST 38 H (14-35) U/L Albumin/Globulin Ratio 1.58 L (1.60-3.17) Ratio Assessment and Plan Plan: Chest tightness New onset atrial fibrillation with controlled ventricular response Hematuria, started after initiating IV heparin protocol, IV heparin was discontinued and urology consultation requested Underlying history of hypertension Underlying history of ankylosing spondylitis Underlying history of osteoarthritis Previous history of kidney stones with lithotripsy Patient was admitted to telemetry floor Home medications reviewed and reordered Serial EKG and cardiac enzymes ordered He was started on IV heparin protocol which was later discontinued due to hematuria Cardiology and urology consultation requested Kidney ultrasound ordered Will follow closely
[2024-01-18] MEDS ORDERED: CAFFEINE CITRATE 60 MG/3 ML VIAL IV PRN (10:29)
[2024-01-18] MEDS ORDERED: AMINOPHYLLINE 500 MG/20 ML VIAL IV PRN (10:29)
[2024-01-18] MEDS ORDERED: REGADENOSON 0.4 MG/5 ML SYRINGE IV PRN (10:29)
--- NOTE | 2024-01-18 11:54 | P.PN ---
Subjective Progress Note Date: 01/18/24 Principal diagnosis: Recent diagnosis of atrial fibrillation The patient is a pleasant 73-year-old gentleman with a past medical history significant for hypertension and dyslipidemia who was admitted to the hospital with atrial fibrillation which is a new diagnosis to the patient. The echo showed normal LV systolic function. Acute coronary event was ruled out by normal troponin. January 17, 2024 The patient was seen and evaluated. He continues to be experiencing intermittent episodes of palpitations/heart racing and he remains in atrial fibrillation with controlled heart rate on the current medical regimen. He also reports intermittent episodes of atypical chest discomfort appears to be of very short duration. Currently his chest pain-free. Currently is on heparin IV. He is not having any more hematuria. He was seen by the urology service. I am going to stop the heparin and start the patient on oral anticoagulation. Monitor the patient. He need to undergo a stress test either as an inpatient or outpatient depends on his clinical course and for any more episode of chest discomfort. The examination is remarkable for irregular rhythm with clear breathing sounds bilaterally and no edema was noted in the lower extremities January 18, 2024 The patient was seen and evaluated this morning. He did have an episode of dizziness and lightheadedness earlier today and he continues to have shortness of breath with exertion. I am going to decrease the dose of metoprolol. He was scheduled to undergo Lexiscan Cardiolite stress test tomorrow which I would agree on. Examination is remarkable for irregular rhythm with bradycardia and soft systolic murmur and clear breathing sounds bilaterally and no edema was noted Assessment Atrial fibrillation with controlled heart rate Multiple comorbid conditions including hypertension and dyslipidemia Chest discomfort Plan Decrease the dose of metoprolol Follow-up with the patient after the stress test tomorrow Objective - Vital Signs Vital signs: Vital Signs Temp 97.5 F L 01/18/24 06:24 Pulse 68 01/18/24 06:24 Resp 18 01/18/24 06:24 BP 145/84 01/18/24 06:24 Pulse Ox 96 01/18/24 06:24 FiO2 Intake & Output 01/17/24 01/18/24 01/18/24 18:59 06:59 18:59 Intake Total 600 236 Balance 600 236 Intake: Oral 600 236 Other: Voiding Method Toilet Toilet # Voids 3 3 # Bowel Movements 0 - Labs CBC & Chem 7: 01/18/24 06:00 01/18/24 06:00 Labs: Abnormal Lab Results - Last 24 Hours (Table) 01/18/24 01/18/24 Range/Units 06:00 06:00 RBC 6.39 H (4.40-5.60) X 10*6/uL Hgb 18.4 H (13.0-17.0) g/dL Hct 56.2 H (39.6-50.0) % RDW 15.3 H (11.5-14.5) % Anion Gap 15.40 H (4.00-12.00) mmol/L Glucose 131 H (70-110) mg/dL AST 38 H (14-35) U/L Albumin/Globulin Ratio 1.58 L (1.60-3.17) Ratio
[2024-01-18] MEDS: METOPROLOL TARTRATE 25 MG TAB PO SCH (20:27)
--- NOTE | 2024-01-18 22:20 | P.PN ---
Subjective Progress Note Date: 01/18/24 Urine remains clear on anticogulation. Denies any difficulty voiding Objective - Vital Signs Vital signs: Vital Signs Temp 98.1 F 01/18/24 19:52 Pulse 66 01/18/24 19:52 Resp 18 01/18/24 19:52 BP 142/88 01/18/24 19:52 Pulse Ox 97 01/18/24 19:52 FiO2 Intake & Output 01/18/24 01/18/24 01/19/24 06:59 18:59 06:59 Intake Total 236 Balance 236 Intake: Oral 236 Other: Voiding Method Toilet # Voids 3 3 1 - Constitutional General appearance: Present: no acute distress - Gastrointestinal General gastrointestinal: Present: soft. Absent: distended, tenderness - Labs CBC & Chem 7: 01/18/24 06:00 01/18/24 06:00 Labs: Abnormal Lab Results - Last 24 Hours (Table) 01/18/24 01/18/24 Range/Units 06:00 06:00 RBC 6.39 H (4.40-5.60) X 10*6/uL Hgb 18.4 H (13.0-17.0) g/dL Hct 56.2 H (39.6-50.0) % RDW 15.3 H (11.5-14.5) % Anion Gap 15.40 H (4.00-12.00) mmol/L Glucose 131 H (70-110) mg/dL AST 38 H (14-35) U/L Albumin/Globulin Ratio 1.58 L (1.60-3.17) Ratio Assessment and Plan Assessment: 73-year-old male with gross hematuria following initiation of heparin drip for A-fib. No previous history of gross hematuria, gross hematuria resolved now. CT Urogram was only significant for non obstructing left sided renal stone. Discussed with him he will require an outpatient cystoscopy to evaluate the bladder. Discussed with him also there is potentil his gross hematuria is secondary to his renal stones. Discussed if his gross hematuria continue to reoccur and his cysto is WNL then he might need to have his stones removed as an outpatient -Ok to continue anticoagulation -Follow up as an outpatient for possible cystoscopy to evaluate the bladder
[2024-01-19 07:42] VITALS: RESP 16
[2024-01-19 10:17] LABS: Basophils # (A) 0.05 X 10*3/uL (0.00-0.10); Basophils % (A) 0.6 %; Eosinophils # (A) 0.14 X 10*3/uL (0.04-0.35); Eosinophils % (A) 1.6 %; HCT 54.4 % (39.6-50.0); HGB 17.7 g/dL (13.0-17.0); Lymphocytes # (A) 1.26 X 10*3/uL (0.90-5.00); Lymphocytes % (A) 14.8 %; MCH 28.5 pg (27.0-32.0); MCHC 32.5 g/dL (32.0-37.0); MCV 87.5 FL (80.0-97.0); Monocytes % (A) 9.4 %; NRBC Per 100 WBC 0 X 10*3/uL (0.00-0.01); Neutrophils # (A) 6.25 X 10*3/uL (1.80-7.70); Neutrophils % (A) 73.1 %; Platelet Count 211 X 10*3/uL (140-440); RBC 6.22 X 10*6/uL (4.40-5.60); RDW 14.6 % (11.5-14.5); WBC 8.54 X 10*3/uL (4.50-10.00)
[2024-01-19 10:32] LABS: ALT 43 U/L (10-49); AST 37 U/L (14-35); Albumin/Globulin Ratio 1.67 Ratio (1.60-3.17); Alkaline Phosphatase 93 U/L (41-126); BUN/Creat Ratio 15.58 Ratio (12.00-20.00); Blood Urea Nitrogen 18.7 mg/dL (9.0-27.0); Calcium 9.2 mg/dL (8.7-10.3); Carbon Dioxide 27.3 mmol/L (21.6-31.8); Chloride 98 mmol/L (96-109); Globulin 2.4 g/dL (1.6-3.3); Glucose 124 mg/dL (70-110); Potassium 3.3 mmol/L (3.5-5.5); Sodium 138 mmol/L (135-145); Total Bilirubin 0.7 mg/dL (0.3-1.2); Total Protein 6.4 g/dL (6.2-8.2)
--- NOTE | 2024-01-19 10:52 | P.PN ---
Subjective Progress Note Date: 01/19/24 Recent diagnosis of atrial fibrillation The patient is a pleasant 73-year-old gentleman with a past medical history significant for hypertension and dyslipidemia who was admitted to the hospital with atrial fibrillation which is a new diagnosis to the patient. The echo showed normal LV systolic function. Acute coronary event was ruled out by normal troponin. January 17, 2024 The patient was seen and evaluated. He continues to be experiencing intermittent episodes of palpitations/heart racing and he remains in atrial fibrillation with controlled heart rate on the current medical regimen. He also reports intermittent episodes of atypical chest discomfort appears to be of very short duration. Currently his chest pain-free. Currently is on heparin IV. He is not having any more hematuria. He was seen by the urology service. I am going to stop the heparin and start the patient on oral anticoagulation. Monitor the patient. He need to undergo a stress test either as an inpatient or outpatient depends on his clinical course and for any more episode of chest discomfort. The examination is remarkable for irregular rhythm with clear breathing sounds bilaterally and no edema was noted in the lower extremities January 18, 2024 The patient was seen and evaluated this morning. He did have an episode of dizziness and lightheadedness earlier today and he continues to have shortness of breath with exertion. I am going to decrease the dose of metoprolol. He was scheduled to undergo Lexiscan Cardiolite stress test tomorrow which I would agree on. Examination is remarkable for irregular rhythm with bradycardia and soft systolic murmur and clear breathing sounds bilaterally and no edema was noted 01/18 Patient is seen today in follow-up. He is undergoing Lexiscan stress test today. He denies having any chest pain. His back is bothering him from laying on the stretcher. He states he had some palpitations yesterday but none today. Blood pressure 143/90, heart rate 62, pulse ox 96% on room air. Repeat blood work reveals hemoglobin of 17.7. Potassium 3.3, BUN 18 and creatinine 1.2. Patient has been maintained on Eliquis as well as Lopressor for rate control. He remains in atrial fibrillation. Discussed with patient that if Lexiscan stress test is normal, he would be cleared for discharge from cardiology. If the stress test is abnormal, we would proceed with cardiac catheterization most likely. Assessment Atrial fibrillation with controlled heart rate Multiple comorbid conditions including hypertension and dyslipidemia Chest discomfort Plan Continue current cardiac medications: Norvasc 10 mg daily, Eliquis 5 mg twice daily, clonidine 0.1 mg twice daily, hydralazine 50 mg 3 times daily, hydrochlorothiazide 25 mg daily, Imdur 30 mg daily, continue decreased dose of Lopressor 25 mg twice daily Lexiscan stress test today Follow-up with the patient after the stress test Nurse practitioner note has been reviewed, I agree with documented findings and plan of care. Patient was seen and examined. Objective - Vital Signs Vital signs: Vital Signs Temp 97.8 F 01/19/24 07:00 Pulse 62 01/19/24 07:00 Resp 16 01/19/24 07:00 BP 143/90 01/19/24 07:00 Pulse Ox 96 01/19/24 07:00 FiO2 Intake & Output 01/18/24 01/19/24 01/19/24 18:59 06:59 18:59 Intake Total 236 Balance 236 Intake: Oral 236 Other: # Voids 3 1 - Labs CBC & Chem 7: 01/19/24 06:22 01/19/24 06:22 Labs: Abnormal Lab Results - Last 24 Hours (Table) 01/19/24 01/19/24 Range/Units 06:22 06:22 RBC 6.22 H (4.40-5.60) X 10*6/uL Hgb 17.7 H (13.0-17.0) g/dL Hct 54.4 H (39.6-50.0) % RDW 14.6 H (11.5-14.5) % Potassium 3.3 L (3.5-5.5) mmol/L Anion Gap 12.70 H (4.00-12.00) mmol/L Glucose 124 H (70-110) mg/dL AST 37 H (14-35) U/L
--- NOTE | 2024-01-19 12:01 | NM ---
EXAMINATION TYPE: NM stress lexiscan cardiolite DATE OF EXAM: 01/19/2024 COMPARISON: NONE CLINICAL INDICATION: Male, 73 years old with history of chest pain; TECHNIQUE: After the intravenous administration of 10.2 mCi Tc 99m Sestamibi - Cardiolite resting SP ECT images acquired 45 minutes post injection. The patient received 0.4mg Lexiscan, 24.5 mCi Tc 99m Sestamibi - Stress images obtained [address] injection FINDINGS: Review of stress and rest SPECT images demonstrates no distinct perfusion abnormality. Gated analysi s shows normal wall motion with an estimated left ventricular ejection fraction of 78 %. TID is calc ulated at 1.03, within normal limits. IMPRESSION: No scintigraphic evidence for reversible ischemia.
--- NOTE | 2024-01-19 14:52 | P.DS ---
Providers Date of admission: 01/19/24 09:08 Expected date of discharge: 01/19/24 Attending physician: Ger Sanchez Consults: 01/15/24 13:52 Consult Physician Routine Consulting Provider: [facility] Consult Reason/Comments: chest pain, new onset afib Do you want consulting provider notified?: Yes 01/15/24 20:47 Consult Physician Routine Consulting Provider: Deshawn Mckinnon Consult Reason/Comments: hematuria Do you want consulting provider notified?: Yes, Notify in am Primary care physician: [facility] Hospital Course: Diagnosis on discharge: Chest tightness New onset atrial fibrillation with controlled ventricular response Hematuria, started after initiating IV heparin protocol, IV heparin was discontinued and urology consultation requested Underlying history of hypertension Underlying history of ankylosing spondylitis Underlying history of osteoarthritis Previous history of kidney stones with lithotripsy Hospital course: Mikael Berg, is a 73-year-old male who presented to [facility] emergency room with a chief complaint of chest tightness and shortness of breath He was evaluated in the emergency room vital examination on presentation revealed a temperature of 97.7 pulse 57 respiration 18 blood pressure 178/94 pulse ox 97% on room air Laboratory data reveals a white blood count of 9.7 hemoglobin 17.6 platelet count 237 D-dimer 0.6 BUN 22 creatinine 0.83 troponin level 0.012 BNP 1250 Testing in the emergency room revealed EKG revealed atrial fibrillation heart rate 66 chest x-ray revealed no acute cardiopulmonary disease, CT angiogram of the chest revealed mild aneurysmal dilatation of the ascending thoracic aorta measuring 4 cm Patient was admitted to medical floor for further evaluation and treatment On 01/17/2024 patient was seen and examined on the medical floor, he is alert and oriented x 3 in no apparent distress, he is still complaining of episodes of chest tightness , there is no fever or chills, no headache or dizziness no chest pain no shortness of breath no cough, no nausea or vomiting no abdominal pain no diarrhea and no urinary symptoms. Patient was restarted on IV heparin per protocol, he did not have any new episodes of hematuria, CT urogram, revealed evidence of kidney stones, without obstruction, no masses or hydronephrosis. At this time awaiting further evaluation and recommendation from cardiology. On 01/18/2024 patient was seen and examined on the medical floor, he is alert and oriented x 3 in no apparent distress, he still has episodes of chest tightness, and palpitations, otherwise he denies any complaints there is no fever or chills no headache or dizziness no shortness of breath no cough no nausea or vomiting no abdominal pain no diarrhea and no urinary symptoms, cardiology input reviewed, will schedule stress test for a.m. tomorrow, if negative patient can be discharged to home tomorrow On 01/19/2024 patient was seen and examined on the medical floor, he is alert and oriented x 3 in no apparent distress, he denies any complaints there is no fever or chills no headache or dizziness no chest pain no shortness of breath no cough no nausea or vomiting no abdominal pain no diarrhea and no urinary symptoms, cardiology input reviewed, will schedule stress test for a.m. tomorrow, if negative patient can be discharged to home tomorrow Patient underwent a stress test today which was within normal limits, he was evaluated by cardiology and was cleared for discharge to home today, prescriptions were given for Eliquis, and for reduced dose of metoprolol at 25 mg p.o. twice daily Follow-up in the office within 1 week Follow-up with cardiology in 1 to 2 weeks Patient Condition at Discharge: Stable Plan - Discharge Summary Discharge Rx Participant: No New Discharge Prescriptions: New Apixaban [Eliquis] 5 mg PO BID 30 Days #60 tab Metoprolol Tartrate [Lopressor] 25 mg PO BID 30 Days #60 tab Continue Ergocalciferol (Vitamin D2) [Drisdol (50,000 Iu)] 1,250 mcg PO YOST hydroCHLOROthiazide [Hydrodiuril] 25 mg PO DAILY amLODIPine [Norvasc] 10 mg PO DAILY Omeprazole 20 mg PO BID Isosorbide Mononitrate ER [Imdur] 30 mg PO DAILY hydrALAZINE HCL [Apresoline] 50 mg PO AC-TID cloNIDine HCL [Catapres] 0.1 mg PO BID Discontinued Metoprolol Tartrate [Lopressor] 50 mg PO BID Discharge Medication List Ergocalciferol (Vitamin D2) [Drisdol (50,000 Iu)] 1,250 mcg PO YOST 03/14/21 [History] Isosorbide Mononitrate ER [Imdur] 30 mg PO DAILY 03/14/21 [History] Omeprazole 20 mg PO BID 03/14/21 [History] amLODIPine [Norvasc] 10 mg PO DAILY 03/14/21 [History] hydrALAZINE HCL [Apresoline] 50 mg PO AC-TID 03/14/21 [History] hydroCHLOROthiazide [Hydrodiuril] 25 mg PO DAILY 03/14/21 [History] cloNIDine HCL [Catapres] 0.1 mg PO BID 01/15/24 [History] Apixaban [Eliquis] 5 mg PO BID 30 Days #60 tab 01/19/24 [Rx] Metoprolol Tartrate [Lopressor] 25 mg PO BID 30 Days #60 tab 01/19/24 [Rx] Follow up Appointment(s)/Referral(s): Ger Sanchez MD [Primary Care Provider] - 1-2 days Nando Macdonald MD [STAFF PHYSICIAN] - 1 Week
[2024-01-19 15:05] VITALS: BP 139/90; PULSE 96; TEMP 97.6
--- NOTE | 2024-01-19 17:22 | CA ---
Lexiscan Nuclear Stress Test Report Name: Mikael Berg Exam Date: 01/19/2024 09:54 Exam Location: [place] Stress Ht (in): 72 Wt (lb): 240 BSA: 2.30 Ordering Phys: Ger Sanchez MD Referring Phys: barbara Technologist: ANSON Age: 73 Gender: M : 1950 Procedure CPT: Indications: Reflex order-Stress test ICD-10 Codes: Patient History: Chest pain, shortness of breath and history of ascad Medications: Meds past 24 hrs: Pretest Chest Pain: STRESS TEST Lexiscan Protocol Exercise Duration (min:sec): 02:[address] Depressions (mm): Angina Score: Cortez Score: Resting HR (bpm): 58 Peak HR (bpm): 86 Resting BP (mmHg): 129 / 89 Peak BP (mmHg): 145 / 87 MPHR: 148 Target HR: 126 % MPHR: 58 METS: 1.0 Total Dose: Peak Dose: Atropine: Double Product: 24334 BP Response: Stress Termination: Infusion complete Stress Symptoms: No chest pain or symptoms Stress Summary: ECG ANALYSIS Resting ECG: Stress ECG: CONCLUSIONS Lexiscan Cardiolite stress test Normal heart rate and blood pressure response No EKG changes noted Nuclear portion will be reported separately Dr. Tano Cody MD (Electronically Signed) Final Date: 19 January 2024 17:21
== END 2024-01-19 15:25 | disposition home or self-care (01) | DRG 309 ==
LOC: EC 11:00 → 6NMEDSUR 13:54 → OBSVTOIN 01-19 09:08
PROVIDERS: ADMIT Internal Medicine; ATTEND Internal Medicine
DX: I48.91 Unspecified atrial fibrillation (principal); D68.32 Hemorrhagic disorder due to extrinsic circulating anticoagulants; I71.21 Aneurysm of the ascending aorta, without rupture; M45.9 Ankylosing spondylitis of unspecified sites in spine; I10 Essential (primary) hypertension; T45.515A Adverse effect of anticoagulants, initial encounter; M19.90 Unspecified osteoarthritis, unspecified site; E78.5 Hyperlipidemia, unspecified; N20.0 Calculus of kidney; R00.1 Bradycardia, unspecified; R60.0 Localized edema; R31.0 Gross hematuria; R07.89 Other chest pain; Z79.899 Other long term (current) drug therapy; Z88.0 Allergy status to penicillin; Z88.2 Allergy status to sulfonamides; Z87.442 Personal history of urinary calculi
CPT/HCPCS: 36415; 71046; 71275; 74174; 74178; 74400; 76770; 78452; 80053; 81003; 83690; 83735; 83880; 84443; 84484; 85025; 85379; 85610; 85730; 93005; 93017; 93306; 96365; 96366; 96375; 99291

== ENCOUNTER 2024-01-30 14:51 | Observation (INO) | payer MEDICARE, OTHER ==
[2024-01-30 15:37] LABS: INR 1.2 (<1.2); Partial Thromboplastin Time 29.4 sec (22.0-30.0); Prothrombin Time 12.6 sec (10.0-12.5)
[2024-01-30 15:39] LABS: ALT 49 U/L (4-49); AST 47 U/L (17-59); African American GFR (CKD) >90 (>60 ml/min/1.73 sqM); Albumin 4.4 g/dL (3.5-5.0); Alkaline Phosphatase 98 U/L (38-126); Anion Gap 8 mmol/L; Blood Urea Nitrogen 17 mg/dL (9-20); Calcium 9.4 mg/dL (8.4-10.2); Carbon Dioxide 29 mmol/L (22-30); Chloride 101 mmol/L (98-107); Glucose 118 mg/dL (74-99); Magnesium 1.7 mg/dL (1.6-2.3); Non-African American GFR(CKD) 84 (>60 ml/min/1.73 sqM); Potassium 3.3 mmol/L (3.5-5.1); Sodium 138 mmol/L (137-145); Total Bilirubin 1.1 mg/dL (0.2-1.3); Total Protein 7.1 g/dL (6.3-8.2)
--- NOTE | 2024-01-30 16:11 | XR ---
EXAMINATION TYPE: XR chest 2V DATE OF EXAM: 01/30/2024 COMPARISON: 01/15/2024 HISTORY: Shortness of breath TECHNIQUE: Frontal and lateral views of the chest are obtained. FINDINGS: Scattered senescent parenchymal changes noted. Hyperinflation compatible with COPD. No evidence for infiltrate. No evidence for atelectasis. Heart size is stable. Mediastinal structures are stable and grossly unremarkable. No evidence for hilar prominence. Degenerative changes dorsal spine. IMPRESSION: 1. No evidence for acute pulmonary disease.
[2024-01-30 16:19] LABS: Basophils # (A) 0.1 k/uL (0-0.2); Basophils % (A) 1 %; Eosinophils # (A) 0.1 k/uL (0-0.7); Eosinophils % (A) 1 %; HCT 54.1 % (39.0-53.0); HGB 17.8 gm/dL (13.0-17.5); Lymphocytes # (A) 1.3 k/uL (1.0-4.8); Lymphocytes % (A) 13 %; MCH 29.4 pg (25.0-35.0); MCHC 32.8 g/dL (31.0-37.0); MCV 89.6 fL (80.0-100.0); Mean Platelet Volume 8.2; Monocytes # (A) 0.8 k/uL (0-1.0); Monocytes % (A) 8 %; Neutrophils # (A) 7.5 k/uL (1.3-7.7); Neutrophils % (A) 76 %; Platelet Count 192 k/uL (150-450); RBC 6.04 m/uL (4.30-5.90); RDW 14.2 % (11.5-15.5); WBC 9.8 k/uL (3.8-10.6)
--- NOTE | 2024-01-30 17:16 | ED ---
General Adult HPI - General Chief complaint: Chest Pain Stated complaint: SOB Source: patient, RN notes reviewed, old records reviewed Mode of arrival: ambulatory Limitations: no limitations - History of Present Illness Initial comments: 73-year-old presenting for evaluation of chest pressure and dyspnea. Patient had recent diagnosis of atrial fibrillation and was admitted to the hospital where he received echo and stress test as well as cardiology evaluation. He was started on anticoagulation. He has been compliant with medications. He states that he been doing well over the past 1 week but today developed a central chest tightness and mild dyspnea. No cough. No fever. No lower extremity pain or swelling. - Related Data Home Medications Medication Instructions Recorded Confirmed Ergocalciferol (Vitamin D2) 1,250 mcg PO YOST 03/14/21 01/15/24 [Drisdol (50,000 Iu)] Isosorbide Mononitrate ER [Imdur] 30 mg PO DAILY 03/14/21 01/15/24 Omeprazole 20 mg PO BID 03/14/21 01/15/24 amLODIPine [Norvasc] 10 mg PO DAILY 03/14/21 01/15/24 hydrALAZINE HCL [Apresoline] 50 mg PO AC-TID 03/14/21 01/15/24 hydroCHLOROthiazide [Hydrodiuril] 25 mg PO DAILY 03/14/21 01/15/24 cloNIDine HCL [Catapres] 0.1 mg PO BID 01/15/24 01/15/24 Previous Rx's Medication Instructions Recorded Apixaban [Eliquis] 5 mg PO BID 30 Days #60 tab 01/19/24 Metoprolol Tartrate [Lopressor] 25 mg PO BID 30 Days #60 tab 01/19/24 Allergies Allergy/AdvReac Type Severity Reaction Status Date / Time Penicillins Allergy Swelling Verified 01/30/24 14:59 lips Sulfa (Sulfonamide Allergy Anaphylaxis Verified 01/30/24 14:59 Antibiotics) Review of Systems ROS Statement: Those systems with pertinent positive or pertinent negative responses have been documented in the HPI. ROS Other: All systems not noted in ROS Statement are negative. Past Medical History Past Medical History: Atrial Fibrillation, Hypertension Additional Past Medical History / Comment(s): ankylosing spondylitis, arthritis, kindey stones, hital hernia current 2023, [place], ulcer History of Any Multi-Drug Resistant Organisms: None Reported Past Surgical History: No Surgical Hx Reported Additional Past Surgical History / Comment(s): kidney stones with lithrotripsy Past Psychological History: No Psychological Hx Reported Smoking Status: Never smoker Past Alcohol Use History: None Reported Past Drug Use History: None Reported General Exam Limitations: no limitations General appearance: alert, in no apparent distress Head exam: Present: atraumatic, normocephalic Eye exam: Present: normal appearance, PERRL ENT exam: Present: normal exam Neck exam: Present: normal inspection. Absent: tenderness Respiratory exam: Present: normal lung sounds bilaterally. Absent: respiratory distress, wheezes Cardiovascular Exam: Present: regular rate, irregular rhythm GI/Abdominal exam: Present: soft. Absent: distended, tenderness Extremities exam: Present: normal inspection, normal capillary refill Neurological exam: Present: alert, oriented X3 Psychiatric exam: Present: normal affect, normal mood Skin exam: Present: warm, dry, intact Course Vital Signs 01/30/24 01/30/24 01/30/24 14:58 17:08 18:00 Temperature 97.8 F Pulse Rate 87 80 Respiratory 20 18 Rate Blood Pressure 147/90 152/112 156/93 O2 Sat by Pulse 99 98 Oximetry Medical Decision Making - Medical Decision Making Was pt. sent in by a medical professional or institution (, TRELL, ENGINEERING OPERATIONS LEADER, urgent care, hospital, or jail...) When possible be specific @ -No Did you speak to anyone other than the patient for history (EMS, parent, family, police, friend...)? What history was obtained from this source @ -No Did you review nursing and triage notes (agree or disagree)? Why? @ -I reviewed and agree with nursing and triage notes Were old charts reviewed (outside hosp., previous admission, EMS record, old EKG, old radiological studies, urgent care reports/EKG's, jail records)? Report findings @ -No old charts were reviewed Differential Dyspnea: Coronary syndrome, arrhythmia, tamponade, asthma, COPD, pulmonary embolism, pneumonia, pneumothorax, pulmonary effusion, anaphylaxis, diabetic ketoacidosis, flailed chest, pulmonary contusion, diaphragmatic rupture, anemia, neuromuscular, this is not meant to be an all-inclusive list. EKG interpreted by me (3pts min.). @ -EKG: Atrial fibrillation, rate of 74, QRS duration 94, QTc [address] segment elevation. X-rays interpreted by me (1pt min.). @ -Chest x-ray negative for acute cardiopulmonary findings. CT interpreted by me (1pt min.). @ -None done U/S interpreted by me (1pt. min.). @ -None done What testing was considered but not performed or refused? (CT, X-rays, U/S, labs)? Why? @ -None What meds were considered but not given or refused? Why? @ -None Did you discuss the management of the patient with other professionals (professionals i.e. , PA, ENGINEERING OPERATIONS LEADER, lab, RT, psych nurse, social media editor, manager merchandising, teacher, correctional security officer, machine adjuster leader case trim)? Give summary @ -No Was smoking cessation discussed for >3mins.? @ -No Was critical care preformed (if so, how long)? @ -No Were there social determinants of health that impacted care today? How? (Homelessness, low income, unemployed, alcoholism, drug addiction, transportation, low edu. Level, literacy, decrease access to med. care, retirement, rehab)? @ -No Was there de-escalation of care discussed even if they declined (Discuss DNR or withdrawal of care, Hospice)? DNR status @ -No What co-morbidities impacted this encounter? (DM, HTN, Smoking, COPD, CAD, Cancer, CVA, ARF, Chemo, Hep., AIDS, mental health diagnosis, sleep apnea, morbid obesity)? @ -[Hypertension, atrial fibrillation. Was patient admitted / discharged? Hospital course, mention meds given and route, prescriptions, significant lab abnormalities, going to OR and other pertinent info. @ -73-year-old male with chest tightness, dyspnea. Patient is in atrial fi brillation which is rate controlled. Chest x-ray is clear. He has normal CBC, normal CMP, negative initial troponin, negative BNP. Patient is quite concerned about the onset of his symptoms. He did undergo testing within the last 2 weeks including echo, stress test which was negative. Patient will be observed overnight for serial cardiac enzymes, telemetry, cardiology consultation. Case discussed with primary care provider Dr. Sanchez who will admit. Undiagnosed new problem with uncertain prognosis? @ -[No Drug Therapy requiring intensive monitoring for toxicity (Heparin, Nitro, Insulin, Cardizem)? @ -No Were any procedures done? @ -No Diagnosis/symptom? @ - Chest Tightness, A-fib Acute, or Chronic, or Acute on Chronic? @ -Acute Uncomplicated (without systemic symptoms) or Complicated (systemic symptoms)? @ -Default Side effects of treatment? @ -No Exacerbation, Progression, or Severe Exacerbation? @ -No Poses a threat to life or bodily function? How? (Chest pain, [place], [place], pneumonia, PE, COPD, DKA, ARF, appy, cholecystitis, CVA, Diverticulitis, Homicidal, Suicidal, threat to staff... and all critical care pts) @ -yes, acs - Lab Data Result diagrams: 01/30/24 15:13 01/30/24 15:13 Lab Results 01/30/24 01/30/24 01/30/24 Range/Units 15:13 15:13 15:13 WBC 9.8 (3.8-10.6) k/uL RBC 6.04 H (4.30-5.90) m/uL Hgb 17.8 H (13.0-17.5) gm/dL Hct 54.1 H (39.0-53.0) % MCV 89.6 (80.0-100.0) fL MCH 29.4 (25.0-35.0) pg MCHC 32.8 (31.0-37.0) g/dL RDW 14.2 (11.5-15.5) % Plt Count 192 (150-450) k/uL MPV 8.2 Neutrophils % 76 % Lymphocytes % 13 % Monocytes % 8 % Eosinophils % 1 % Basophils % 1 % Neutrophils # 7.5 (1.3-7.7) k/uL Lymphocytes # 1.3 (1.0-4.8) k/uL Monocytes # 0.8 (0-1.0) k/uL Eosinophils # 0.1 (0-0.7) k/uL Basophils # 0.1 (0-0.2) k/uL PT 12.6 H (10.0-12.5) sec INR 1.2 H (<1.2) APTT 29.4 (22.0-30.0) sec Sodium 138 (137-145) mmol/L Potassium 3.3 L (3.5-5.1) mmol/L Chloride 101 (98-107) mmol/L Carbon Dioxide 29 (22-30) mmol/L Anion Gap 8 mmol/L BUN 17 (9-20) mg/dL Creatinine 0.91 (0.66-1.25) mg/dL Est GFR (CKD-EPI)AfAm >90 (>60 ml/min/1.73 sqM) Est GFR (CKD-EPI)NonAf 84 (>60 ml/min/1.73 sqM) Glucose 118 H (74-99) mg/dL Calcium 9.4 (8.4-10.2) mg/dL Magnesium 1.7 (1.6-2.3) mg/dL Total Bilirubin 1.1 (0.2-1.3) mg/dL AST 47 (17-59) U/L ALT 49 (4-49) U/L Alkaline Phosphatase 98 (38-126) U/L Troponin I (0.000-0.034) ng/mL NT-Pro-B Natriuret Pep pg/mL Total Protein 7.1 (6.3-8.2) g/dL Albumin 4.4 (3.5-5.0) g/dL 01/30/24 01/30/24 Range/Units 15:13 15:13 WBC (3.8-10.6) k/uL RBC (4.30-5.90) m/uL Hgb (13.0-17.5) gm/dL Hct (39.0-53.0) % MCV (80.0-100.0) fL MCH (25.0-35.0) pg MCHC (31.0-37.0) g/dL RDW (11.5-15.5) % Plt Count (150-450) k/uL MPV Neutrophils % % Lymphocytes % % Monocytes % % Eosinophils % % Basophils % % Neutrophils # (1.3-7.7) k/uL Lymphocytes # (1.0-4.8) k/uL Monocytes # (0-1.0) k/uL Eosinophils # (0-0.7) k/uL Basophils # (0-0.2) k/uL PT (10.0-12.5) sec INR (<1.2) APTT (22.0-30.0) sec Sodium (137-145) mmol/L Potassium (3.5-5.1) mmol/L Chloride (98-107) mmol/L Carbon Dioxide (22-30) mmol/L Anion Gap mmol/L BUN (9-20) mg/dL Creatinine (0.66-1.25) mg/dL Est GFR (CKD-EPI)AfAm (>60 ml/min/1.73 sqM) Est GFR (CKD-EPI)NonAf (>60 ml/min/1.73 sqM) Glucose (74-99) mg/dL Calcium (8.4-10.2) mg/dL Magnesium (1.6-2.3) mg/dL Total Bilirubin (0.2-1.3) mg/dL AST (17-59) U/L ALT (4-49) U/L Alkaline Phosphatase (38-126) U/L Troponin I <0.012 (0.000-0.034) ng/mL NT-Pro-B Natriuret Pep 798 pg/mL Total Protein (6.3-8.2) g/dL Albumin (3.5-5.0) g/dL Disposition Clinical Impression: Chest pain Disposition: ADMITTED IP TO THIS HOSP Condition: Stable Is patient prescribed a controlled substance at d/c from ED?: No Referrals: Ger Sanchez MD [Primary Care Provider] - 1-2 days Time of Disposition: 18:29
[2024-01-30] MEDS ORDERED: NALOXONE 0.4 MG/ML 1 ML VIAL IV PRN (18:25)
[2024-01-30] MEDS ORDERED: ACETAMINOPHEN TAB 325 MG TAB PO PRN (18:25)
[2024-01-30] MEDS: APIXABAN 5 MG TAB PO SCH (20:16)
[2024-01-30] MEDS: METOPROLOL TARTRATE 25 MG TAB PO SCH (20:16)
[2024-01-30] MEDS: cloNIDine HCL 0.1 MG TAB PO SCH (20:16)
[2024-01-31 00:42] LABS: Glucose,Whole Blood 101 mg/dL (70-110)
[2024-01-31 01:33] LABS: Appearance,Urine Clear (Clear); Bilirubin,Urine Negative (Negative); Blood,Urine Negative (Negative); Color,Urine Colorless; Glucose,Urine (UA) Negative (Negative); Ketones,Urine Trace (Negative); Leukocyte Esterase,Urine Negative (Negative); Nitrite,Urine Negative (Negative); Protein,Urine Negative (Negative); Specific Gravity,Urine 1.006 (1.001-1.035); Urobilinogen,Urine <2.0 mg/dL (<2.0)
[2024-01-31] MEDS: POTASSIUM BICARBONATE/CIT AC 20 MEQ TABLET.EFF PO ONE ×2 (03:23→03:24)
[2024-01-31] MEDS: MAGNESIUM OXIDE 400 MG TAB PO STA (03:24)
[2024-01-31] MEDS: hydrALAZINE HCL 50 MG TAB PO SCH (09:14)
[2024-01-31] MEDS: ISOSORBIDE MONONITRATE ER 30 MG TAB.ER.24H PO SCH (09:14)
[2024-01-31] MEDS: amLODIPine 10 MG TAB PO SCH (09:14)
[2024-01-31] MEDS: hydroCHLOROthiazide 25 MG TAB PO SCH (09:14)
--- NOTE | 2024-01-31 10:11 | P.HPIM ---
History of Present Illness H&P Date: 01/31/24 This is a 73-year-old male patient who presented with complaints of chest pressure that started yesterday. Patient reports he was recently diagnosed with atrial fibrillation. Patient reports he has been compliant with his medication and followed up with cardiology services was doing well up until yesterday. Patient denies any recent illness. Additional medical history includes essential hypertension, arthritis, kidney stones and hiatal hernia. Chest x-ray completed in ER showing no evidence for acute pulmonary disease. EKG showing rate of 74 atrial fibrillation patient is maintained on Eliquis. Troponins negative x 3. BNP 798. At this time patient will be admitted cardiology services consulted. Patient denies chest pain or shortness of breath. Patient denies nausea vomiting or diarrhea. Patient denies any urinary burning or frequency Review of Systems Please refer to HPI otherwise unremarkable Past Medical History Past Medical History: Atrial Fibrillation, Hypertension Additional Past Medical History / Comment(s): ankylosing spondylitis, arthritis, kindey stones, hital hernia current 2023, [place], ulcer History of Any Multi-Drug Resistant Organisms: None Reported Past Surgical History: No Surgical Hx Reported Additional Past Surgical History / Comment(s): kidney stones with lithrotripsy Past Psychological History: No Psychological Hx Reported Smoking Status: Never smoker Past Alcohol Use History: None Reported Past Drug Use History: None Reported Medications and Allergies Home Medications Medication Instructions Recorded Confirmed Type Ergocalciferol (Vitamin D2) 1,250 mcg PO YOST 03/14/21 01/30/24 History [Drisdol (50,000 Iu)] Isosorbide Mononitrate ER [Imdur] 30 mg PO DAILY 03/14/21 01/30/24 History Omeprazole 20 mg PO BID 03/14/21 01/30/24 History amLODIPine [Norvasc] 10 mg PO DAILY 03/14/21 01/30/24 History hydrALAZINE HCL [Apresoline] 50 mg PO AC-TID 03/14/21 01/30/24 History hydroCHLOROthiazide [Hydrodiuril] 25 mg PO DAILY 03/14/21 01/30/24 History cloNIDine HCL [Catapres] 0.1 mg PO BID 01/15/24 01/30/24 History Apixaban [Eliquis] 5 mg PO BID 30 Days #60 tab 01/19/24 01/30/24 Rx Metoprolol Tartrate [Lopressor] 25 mg PO BID 30 Days #60 tab 01/19/24 01/30/24 Rx Allergies Allergy/AdvReac Type Severity Reaction Status Date / Time Penicillins Allergy Swelling Verified 01/30/24 18:47 lips Sulfa (Sulfonamide Allergy Anaphylaxis Verified 01/30/24 18:47 Antibiotics) Physical Exam Vitals: Vital Signs Temp Pulse Pulse Resp BP Pulse Ox 01/31/24 06:00 49 L 16 146/96 99 01/31/24 05:00 50 L 16 99 01/31/24 04:00 53 L 16 133/91 98 01/31/24 03:00 52 L 16 127/97 99 01/31/24 02:10 16 01/31/24 02:00 51 L 16 142/85 98 01/31/24 01:00 97.6 F 47 L 16 142/85 99 01/31/24 00:44 48 L 16 99 01/31/24 00:43 44 L 01/31/24 00:00 45 L 16 136/94 98 01/30/24 18:00 156/93 01/30/24 17:08 80 18 152/112 98 01/30/24 14:58 97.8 F 87 20 147/90 99 Head normocephalic Neck supple Lungs clear to auscultation bilaterally no wheezing or crackles Heart regular rate and rhythm S1-S2, no rub or gallop Abdomen is soft nontender nondistended positive bowel sounds no hepatosplenomegaly Extremities no edema Neuro alert and orientated to 3 Results CBC & Chem 7: 01/30/24 15:13 01/30/24 15:13 Labs: Abnormal Lab Results - Last 24 Hours (Table) 01/30/24 01/30/24 01/30/24 Range/Units 15:13 15:13 15:13 RBC 6.04 H (4.30-5.90) m/uL Hgb 17.8 H (13.0-17.5) gm/dL Hct 54.1 H (39.0-53.0) % PT 12.6 H (10.0-12.5) sec INR 1.2 H (<1.2) Potassium 3.3 L (3.5-5.1) mmol/L Glucose 118 H (74-99) mg/dL Urine Ketones (Negative) 01/31/24 Range/Units 01:15 RBC (4.30-5.90) m/uL Hgb (13.0-17.5) gm/dL Hct (39.0-53.0) % PT (10.0-12.5) sec INR (<1.2) Potassium (3.5-5.1) mmol/L Glucose (74-99) mg/dL Urine Ketones Trace H (Negative) Assessment and Plan Assessment: 1. Chest pain. Troponins negative x 3 chest x-ray negative 2. Recent diagnosis of atrial fibrillation maintained on Eliquis heart rate controlled at this time 3. History of essential hypertension 4. History of ankylosing spondylitis 5. History of osteoarthritis 6. History of kidney stones with lithotripsy Cardiology services consulted Repeat labs ordered Patient recently underwent stress test and 2D echo Time with Patient: Greater than 30 (Greater than 60% of the total time spent in counseling and coordination of care)
--- NOTE | 2024-01-31 11:36 | P.CRDCN ---
History of Present Illness Consult date: 01/31/24 Requesting physician: Ger Sanchez Reason for Consult (text): CP Chief complaint: chest pressure, shortness of breath History of present illness: A pleasant 73-year-old gentleman with a past medical history of hypertension who was recently admitted on 01/15/2024 after being seen at his primary care physician's office and found to have new onset atrial fibrillation. He was anticoagulated and an echocardiogram at that time showed normal LV systolic function with mild MR mild TR and a Lexiscan MPI showed no evidence of ischemia. He presented this admission with complaints of again chest pressure feeling a skipping heartbeat and shortness of breath after finishing lunch yesterday. Through the night he did fairly well but did have an episode of feeling nauseous somewhat short of breath and flushed at which time EKG showed atrial fibrillation with slow ventricular response. He has no exertional chest discomfort however is limited in his physical activity due to history of ankylosing spondylitis. He was seen by Dr. Jesus on Friday of this past week at which time according to the patient and things were stable and he was scheduled to follow-up in 6 months. He has had no orthopnea or PND. No exertional chest pain. Heart rate remains anywhere from 40s to 60s. He is currently on metoprolol tartrate 25 mg p.o. twice daily as well as clonidine 0.1 mg p.o. twice daily. He denies any bleeding. He has had no syncope or near syncope. Past Medical History Past Medical History: Atrial Fibrillation, Hypertension Additional Past Medical History / Comment(s): ankylosing spondylitis, arthritis, kindey stones, hital hernia current 2023, [place], ulcer History of Any Multi-Drug Resistant Organisms: None Reported Past Surgical History: No Surgical Hx Reported Additional Past Surgical History / Comment(s): kidney stones with lithrotripsy Past Psychological History: No Psychological Hx Reported Smoking Status: Never smoker Past Alcohol Use History: None Reported Past Drug Use History: None Reported Medications and Allergies Home Medications Medication Instructions Recorded Confirmed Type Ergocalciferol (Vitamin D2) 1,250 mcg PO YOST 03/14/21 01/30/24 History [Drisdol (50,000 Iu)] Isosorbide Mononitrate ER [Imdur] 30 mg PO DAILY 03/14/21 01/30/24 History Omeprazole 20 mg PO BID 03/14/21 01/30/24 History amLODIPine [Norvasc] 10 mg PO DAILY 03/14/21 01/30/24 History hydrALAZINE HCL [Apresoline] 50 mg PO AC-TID 03/14/21 01/30/24 History hydroCHLOROthiazide [Hydrodiuril] 25 mg PO DAILY 03/14/21 01/30/24 History cloNIDine HCL [Catapres] 0.1 mg PO BID 01/15/24 01/30/24 History Apixaban [Eliquis] 5 mg PO BID 30 Days #60 tab 01/19/24 01/30/24 Rx Metoprolol Tartrate [Lopressor] 25 mg PO BID 30 Days #60 tab 01/19/24 01/30/24 Rx Allergies Allergy/AdvReac Type Severity Reaction Status Date / Time Penicillins Allergy Swelling Verified 01/30/24 18:47 lips Sulfa (Sulfonamide Allergy Anaphylaxis Verified 01/30/24 18:47 Antibiotics) Physical Exam Vitals: Vital Signs Temp Pulse Pulse Resp BP Pulse Ox 01/31/24 10:00 56 L 18 136/94 97 01/31/24 08:15 58 L 18 143/96 97 01/31/24 06:00 49 L 16 146/96 99 01/31/24 05:00 50 L 16 99 01/31/24 04:00 53 L 16 133/91 98 01/31/24 03:00 52 L 16 127/97 99 01/31/24 02:10 16 01/31/24 02:00 51 L 16 142/85 98 01/31/24 01:00 97.6 F 47 L 16 142/85 99 01/31/24 00:44 48 L 16 99 01/31/24 00:43 44 L 01/31/24 00:00 45 L 16 136/94 98 01/30/24 18:00 156/93 01/30/24 17:08 80 18 152/112 98 01/30/24 14:58 97.8 F 87 20 147/90 99 PHYSICAL EXAMINATION: This is a 73-year-old woman in no apparent distress at the time of my examination. VITAL SIGNS: Reviewed. HEENT: Head is atraumatic, normocephalic. Pupils are equal, round. Sclerae anicteric. Conjunctivae are clear. Mucous membranes of the mouth are moist. Neck is supple. There is no elevated jugular venous pressure. No carotid bruit is heard. CHEST EXAMINATION: Clear to auscultation bilaterally. No wheezes rales or rhonchi. Respirations even and nonlabored. HEART EXAMINATION: Heart regular rate and rhythm, positive S1 and S2. No S3. No S4. Systolic murmur, bradycardia noted. ABDOMEN: Soft, nontender. Bowel sounds are heard. No organomegaly noted. EXTREMITIES: 2+ peripheral pulses with evidence of trace peripheral edema and no calf tenderness noted. NEUROLOGIC EXAMINATION: Patient is awake, alert and oriented x3. Results 01/30/24 15:13 01/30/24 15:13 Cardiac Enzymes 01/30/24 01/30/24 01/30/24 Range/Units 15:13 15:13 17:58 AST 47 (17-59) U/L Troponin I <0.012 <0.012 (0.000-0.034) ng/mL 01/30/24 01/30/24 Range/Units 20:23 23:51 AST (17-59) U/L Troponin I <0.012 <0.012 (0.000-0.034) ng/mL Coagulation 01/30/24 Range/Units 15:13 PT 12.6 H (10.0-12.5) sec APTT 29.4 (22.0-30.0) sec CBC 01/30/24 Range/Units 15:13 WBC 9.8 (3.8-10.6) k/uL RBC 6.04 H (4.30-5.90) m/uL Hgb 17.8 H (13.0-17.5) gm/dL Hct 54.1 H (39.0-53.0) % Plt Count 192 (150-450) k/uL Comprehensive Metabolic Panel 01/30/24 Range/Units 15:13 Sodium 138 (137-145) mmol/L Potassium 3.3 L (3.5-5.1) mmol/L Chloride 101 (98-107) mmol/L Carbon Dioxide 29 (22-30) mmol/L BUN 17 (9-20) mg/dL Creatinine 0.91 (0.66-1.25) mg/dL Glucose 118 H (74-99) mg/dL Calcium 9.4 (8.4-10.2) mg/dL AST 47 (17-59) U/L ALT 49 (4-49) U/L Alkaline Phosphatase 98 (38-126) U/L Total Protein 7.1 (6.3-8.2) g/dL Albumin 4.4 (3.5-5.0) g/dL Current Medications Generic Name Dose Route Start Last Admin Trade Name Freq PRN Reason Stop Dose Admin Acetaminophen 650 mg 01/30/24 18:25 Acetaminophen Tab 325 Mg Tab PO Q6HR PRN Mild Pain or Fever > 100.5 Amlodipine Besylate 10 mg 01/31/24 09:00 01/31/24 09:14 Amlodipine 10 Mg Tab PO 10 mg DAILY REESE Administration Apixaban 5 mg 01/30/24 20:00 01/31/24 09:14 Apixaban 5 Mg Tab PO 5 mg BID REESE Administration Protocol Clonidine 0.1 mg 02/01/24 09:00 Clonidine Hcl 0.1 Mg Tab PO DAILY REESE Hydralazine HCl 50 mg 01/31/24 07:30 01/31/24 09:14 Hydralazine Hcl 50 Mg Tab PO 50 mg AC-TID REESE Administration Hydrochlorothiazide 25 mg 01/31/24 09:00 01/31/24 09:14 Hydrochlorothiazide 25 Mg Tab PO 25 mg DAILY REESE Administration Isosorbide Mononitrate 30 mg 01/31/24 09:00 01/31/24 09:14 Isosorbide Mononitrate Er 30 Mg Tab.Er.24h PO 30 mg DAILY REESE Administration Metoprolol Tartrate 25 mg 01/30/24 21:00 01/31/24 09:14 Metoprolol Tartrate 25 Mg Tab PO 25 mg BID REESE Administration Naloxone HCl 0.2 mg 01/30/24 18:25 Naloxone 0.4 Mg/Ml 1 Ml Vial IV Q2M PRN Opioid Reversal 01/30/24 15:13 01/30/24 15:13 Assessment and Plan Assessment: #1 persistent atrial fibrillation, slow ventricular response at times #2 symptoms of chest pressure and shortness of breath could be related to above #3 hypertension Plan: From cardiology's perspective we will decrease clonidine to once a day. If blood pressure remains stable may consider stopping it altogether. Patient will be set up to obtain a 1 week event monitor from our office on Friday, February 01 and follow-up with Dr. Jesus following that. From our standpoint patient can be discharged home. ELECTRICIAN SUBSTATION SUPERVISOR note has been reviewed, I agree with a documented findings and plan of care. Patient was seen and examined.
--- NOTE | 2024-02-01 09:53 | P.PN ---
Subjective Progress Note Date: 02/01/24 This is a 73-year-old male patient who presented with complaints of chest pressure that started yesterday. Patient reports he was recently diagnosed with atrial fibrillation. Patient reports he has been compliant with his medication and followed up with cardiology services was doing well up until yesterday. Patient denies any recent illness. Additional medical history includes essential hypertension, arthritis, kidney stones and hiatal hernia. Chest x-ray completed in ER showing no evidence for acute pulmonary disease. EKG showing rate of 74 atrial fibrillation patient is maintained on Eliquis. Troponins negative x 3. BNP 798. At this time patient will be admitted cardiology services consulted. Patient denies chest pain or shortness of breath. Patient denies nausea vomiting or diarrhea. Patient denies any urinary burning or frequency On 02/01/2024 patient was seen and examined on the medical floor he is alert and oriented x 3 in no apparent distress there is no fever or chills no headache or dizziness no new episodes of chest pain no shortness of breath no cough no nausea or vomiting no abdominal pain no diarrhea no urinary symptoms. Patient was admitted with chest pain, he is being evaluated by cardiology, cardiac medications are being adjusted, clonidine is being weaned off gradually, blood pressure is elevated at this time, awaiting further recommendation from cardio logy will follow closely, cardiac evaluation including stress test were within normal limits on recent admission few weeks ago. Objective - Vital Signs Vital signs: Vital Signs Temp 98.3 F 02/01/24 07:29 Pulse 68 02/01/24 07:29 Resp 18 02/01/24 07:29 BP 147/84 02/01/24 07:29 Pulse Ox 96 02/01/24 07:29 FiO2 Intake & Output 01/31/24 02/01/24 02/01/24 18:59 06:59 18:59 Output Total 250 Balance -250 Weight 105.687 kg Output: Urine 250 Other: Voiding Method Toilet # Voids 1 - Exam In general patient is alert and oriented x 3 in no distress HEENT head normocephalic and atraumatic Neck is supple no JVD no goiter no lymphadenopathy no carotid bruit Chest examination is clear to auscultation no crackles no wheezing Cardiac exam reveals regular heart sounds S1 and S2 no gallops no murmurs Abdomen is soft nontender no organomegaly with normal bowel sounds Extremity exam reveals no edema no cyanosis or clubbing Neurological examination reveals no gross focal deficits - Labs CBC & Chem 7: 01/30/24 15:13 01/30/24 15:13 Assessment and Plan Assessment: 1. Chest pain. Troponins negative x 3 chest x-ray negative 2. Recent diagnosis of atrial fibrillation maintained on Eliquis heart rate controlled at this time 3. History of essential hypertension 4. History of ankylosing spondylitis 5. History of osteoarthritis 6. History of kidney stones with lithotripsy Cardiology services consulted Repeat labs ordered Patient recently underwent stress test and 2D echo
--- NOTE | 2024-02-01 10:57 | P.PN ---
Subjective Progress Note Date: 02/01/24 This is a pleasant 73-year-old gentleman with a past medical history of hypertension who was recently admitted on 01/15/2024 after being seen at his primary care physician's office and found to have new onset atrial fibrillation. He was anticoagulated and an echocardiogram at that time showed normal LV syst olic function with mild MR mild TR and a Lexiscan MPI showed no evidence of ischemia. He presented this admission with complaints of again chest pressure feeling a skipping heartbeat and shortness of breath after finishing lunch yesterday. Through the night he did fairly well but did have an episode of feeling nauseous somewhat short of breath and flushed at which time EKG showed atrial fibrillation with slow ventricular response. He has no exertional chest discomfort however is limited in his physical activity due to history of ankylosing spondylitis. He was seen by Dr. Jesus on Friday of this past week at which time according to the patient and things were stable and he was scheduled to follow-up in 6 months. He has had no orthopnea or PND. No exertional chest pain. Heart rate remains anywhere from 40s to 60s. He is currently on metoprolol tartrate 25 mg p.o. twice daily as well as clonidine 0.1 mg p.o. twice daily. He denies any bleeding. He has had no syncope or near sy ncope. 02/01/2024 Was seen and examined resting comfortably in bed. Overall he is feeling quite well. He has had no further complaints of chest pressure or shortness of breath. His heart rate is better. Blood pressure has been elevated. Objective - Vital Signs Vital signs: Vital Signs Temp 98.3 F 02/01/24 07:29 Pulse 68 02/01/24 08:00 Resp 18 02/01/24 08:00 BP 147/84 02/01/24 07:29 Pulse Ox 96 02/01/24 07:29 FiO2 Intake & Output 01/31/24 02/01/24 02/01/24 18:59 06:59 18:59 Intake Total 236 Output Total 250 300 Balance -250 -64 Weight 105.687 kg Intake: Oral 236 Output: Urine 250 300 Other: Voiding Method Toilet Toilet Urinal # Voids 1 - Exam VITAL SIGNS: Reviewed. HEENT: Head is atraumatic, normocephalic. Pupils are equal, round. Sclerae anicteric. Conjunctivae are clear. Mucous membranes of the mouth are moist. Neck is supple. There is no elevated jugular venous pressure. No carotid bruit is heard. CHEST EXAMINATION: Clear to auscultation bilaterally. No wheezes rales or rhonchi. Respirations even and nonlabored. HEART EXAMINATION: Heart regular rate and rhythm, positive S1 and S2. No S3. No S4. Systolic murmur. ABDOMEN: Soft, nontender. Bowel sounds are heard. No organomegaly noted. EXTREMITIES: 2+ peripheral pulses with evidence of trace peripheral edema and no calf tenderness noted. NEUROLOGIC EXAMINATION: Patient is awake, alert and oriented x3. - Labs CBC & Chem 7: 01/30/24 15:13 01/30/24 15:13 Assessment and Plan Assessment: #1 persistent atrial fibrillation, slow ventricular response at times #2 symptoms of chest pressure and shortness of breath could be related to above #3 hypertension Plan: From cardiology's perspective we will increase hydralazine. Clonidine can hopefully be discontinued as an outpatient. Patient will be set up to obtain a 1 week event monitor from our office on Friday, February 01 and follow-up with Dr. Jesus following that. From our standpoint patient can be discharged home. [employer]PER[employer] note has been reviewed, I agree with a documented findings and plan of care. Patient was seen and examined.
[2024-02-01] MEDS: hydrALAZINE HCL 25 MG TAB PO SCH (11:32)
[2024-02-01] MEDS: cloNIDine HCL 0.1 MG TAB PO SCH (11:45)
[2024-02-01 13:12] VITALS: BP 144/77; PULSE 61; RESP 17; TEMP 98.1
--- NOTE | 2024-02-01 13:27 | P.DS ---
Providers Date of admission: 01/30/24 18:26 Expected date of discharge: 02/01/24 Attending physician: Ger Sanchez Consults: 01/30/24 18:25 Consult Physician Routine Consulting Provider: Nando Macdonald Consult Reason/Comments: CP Do you want consulting provider notified?: Yes Primary care physician: Ger Daniel [place] [facility] Course: diagnosis on discharge: 1. Chest pain. Troponins negative x 3 chest x-ray negative 2. Recent diagnosis of atrial fibrillation maintained on Eliquis heart rate controlled at this time 3. History of essential hypertension 4. History of ankylosing spondylitis 5. History of osteoarthritis 6. History of kidney stones with lithotripsy Hospital course: This is a 73-year-old male patient who presented with complaints of chest pressure that started yesterday. Patient reports he was recently diagnosed with atrial fibrillation. Patient reports he has been compliant with his medication and followed up with cardiology services was doing well up until yesterday. Patient denies any recent illness. Additional medical history includes essential hypertension, arthritis, kidney stones and hiatal hernia. Chest x-ray completed in ER showing no evidence for acute pulmonary disease. EKG showing rate of 74 atrial fibrillation patient is maintained on Eliquis. Troponins negative x 3. BNP 798. At this time patient will be admitted cardiology services consulted. Patient denies chest pain or shortness of breath. Patient denies nausea vomiting or diarrhea. Patient denies any urinary burning or frequency On 02/01/2024 patient was seen and examined on the medical floor he is alert and oriented x 3 in no apparent distress there is no fever or chills no headache or dizziness no new episodes of chest pain no shortness of breath no cough no nausea or vomiting no abdominal pain no diarrhea no urinary symptoms. Patient was admitted with chest pain, he is being evaluated by cardiology, cardiac medications are being adjusted, clonidine is being weaned off gradually, blood pressure is elevated at this time, awaiting further recommendation from cardiology will follow closely, cardiac evaluation including stress test were within normal limits on recent admission few weeks ago. Patient was evaluated by cardiology, dose of clonidine was decreased to 0.1 mg once daily, and dose of hydralazine was increased to 75 mg 3 times daily, patient was cleared for discharge, he will be followed in our office in 2 to 3 days. Patient Condition at Discharge: Stable Plan - Discharge Summary Discharge Rx Participant: No New Discharge Prescriptions: New hydrALAZINE HCL [Apresoline] 75 mg PO AC-TID 30 Days #90 tab cloNIDine HCL [Catapres] 0.1 mg PO HS tab Continue Ergocalciferol (Vitamin D2) [Drisdol (50,000 Iu)] 1,250 mcg PO YOST Apixaban [Eliquis] 5 mg PO BID 30 Days #60 tab Metoprolol Tartrate [Lopressor] 25 mg PO BID 30 Days #60 tab hydroCHLOROthiazide [Hydrodiuril] 25 mg PO DAILY amLODIPine [Norvasc] 10 mg PO DAILY Omeprazole 20 mg PO BID Isosorbide Mononitrate ER [Imdur] 30 mg PO DAILY Discontinued hydrALAZINE HCL [Apresoline] 50 mg PO AC-TID cloNIDine HCL [Catapres] 0.1 mg PO BID Discharge Medication List Ergocalciferol (Vitamin D2) [Drisdol (50,000 Iu)] 1,250 mcg PO YOST 03/14/21 [History] Isosorbide Mononitrate ER [Imdur] 30 mg PO DAILY 03/14/21 [History] Omeprazole 20 mg PO BID 03/14/21 [History] amLODIPine [Norvasc] 10 mg PO DAILY 03/14/21 [History] hydroCHLOROthiazide [Hydrodiuril] 25 mg PO DAILY 03/14/21 [History] Apixaban [Eliquis] 5 mg PO BID 30 Days #60 tab 01/19/24 [Rx] Metoprolol Tartrate [Lopressor] 25 mg PO BID 30 Days #60 tab 01/19/24 [Rx] cloNIDine HCL [Catapres] 0.1 mg PO HS tab 02/01/24 [Rx] hydrALAZINE HCL [Apresoline] 75 mg PO AC-TID 30 Days #90 tab 02/01/24 [Rx] Follow up Appointment(s)/Referral(s): [facility] [Provider Group] - 02/02/24 (Event Monitor walk in any time between 8:30-12:00 or 1:30-4:30) Ger Sanchez MD [Primary Care Provider] - 1-2 days Nando Macdonald MD [STAFF PHYSICIAN] - 02/18/24 4:00 pm
[2024-02-01] MEDS ORDERED: cloNIDine HCL 0.1 MG TAB PO SCH (21:00)
== END 2024-02-01 15:36 | disposition home or self-care (01) ==
LOC: EC 14:51 → 6NMEDSUR 18:26
PROVIDERS: ADMIT Internal Medicine; ATTEND Internal Medicine
DX: I48.91 Unspecified atrial fibrillation (principal); I10 Essential (primary) hypertension; M19.90 Unspecified osteoarthritis, unspecified site; Z87.442 Personal history of urinary calculi; Z79.899 Other long term (current) drug therapy; Z79.01 Long term (current) use of anticoagulants; D64.9 Anemia, unspecified; Z79.02 Long term (current) use of antithrombotics/antiplatelets
CPT/HCPCS: 99285; 36415; 93005 ×2; 83880; 80053; 83735; 84484; 85025; 85610; 85730; 81003; 87040; 71046; G0378 ×3

== ENCOUNTER 2024-02-26 06:04 | Day surgery (SDC) | payer MEDICARE, OTHER ==
[2024-02-23 14:55] VITALS: BMI 16.7
[~2024-02-26 06:04] MED LIST: LACTATED RINGERS 1,000 ML IV SCH; LIDOCAINE 1% (10MG/ML) FOR IV START INTRADERMA PRN; SODIUM CHLORIDE 0.9% 1,000 ML IV SCH
[2024-02-26 06:42] VITALS: TEMP 97
[2024-02-26] MEDS: IV FLUID CONTINUATION 1,000 ML IV ONE (06:55)
[2024-02-26] MEDS: SODIUM CHLORIDE 0.9% 500 ML DEHP FREE BAG IV STA (06:56)
[2024-02-26 07:33] LABS: African American GFR (CKD) >90 (>60 ml/min/1.73 sqM); Anion Gap 7 mmol/L; Blood Urea Nitrogen 14 mg/dL (9-20); Calcium 9.4 mg/dL (8.4-10.2); Carbon Dioxide 28 mmol/L (22-30); Chloride 103 mmol/L (98-107); Glucose 132 mg/dL (74-99); Non-African American GFR(CKD) >90 (>60 ml/min/1.73 sqM); Sodium 138 mmol/L (137-145)
[2024-02-26 07:39] LABS: Potassium 3.4 mmol/L (3.5-5.1)
[2024-02-26 07:53] VITALS: BP 156/78; PULSE 78; RESP 16
== END 2024-02-26 08:01 | disposition home or self-care (01) ==
LOC: OR 06:04
PROVIDERS: ATTEND Internal Medicine Cardiovascular Disease
DX: I48.19 Other persistent atrial fibrillation (principal); Z53.8 Procedure and treatment not carried out for other reasons; I48.0 Paroxysmal atrial fibrillation; I48.92 Unspecified atrial flutter; I73.9 Peripheral vascular disease, unspecified; R00.1 Bradycardia, unspecified; I10 Essential (primary) hypertension; E78.2 Mixed hyperlipidemia; K21.9 Gastro-esophageal reflux disease without esophagitis; Z88.0 Allergy status to penicillin; Z88.2 Allergy status to sulfonamides; Z79.01 Long term (current) use of anticoagulants; Z79.899 Other long term (current) drug therapy
CPT/HCPCS: 80048

== ENCOUNTER → 2024-06-23 | Outpatient (CLI) | payer MEDICARE, OTHER ==
[2024-06-23 15:17] LABS: African American GFR (CKD) >90 (>60 ml/min/1.73 sqM); Blood Urea Nitrogen 22 mg/dL (9-20); Non-African American GFR(CKD) 85 (>60 ml/min/1.73 sqM)
--- NOTE | 2024-06-23 17:34 | CT ---
EXAMINATION TYPE: CT urogram wo/w con DATE OF EXAM: 06/23/2024 4:49 PM COMPARISON: 01/16/2024. CLINICAL INDICATION: Male, 74 years old with history of GROSS HEMENTURIA R31.0; PHH, Gross hematuria x1 month TECHNIQUE: Urogram with imaging of the abdomen and pelvis. Coronal and sagittal reformats were performed. 2D and 3D reconstructions are performed to assist visualization of the urinary tract on a separate workstat ion. Contrast used:100ml mL of Isovue 370 with IV Contrast, Oral contrast used: None. CT DLP: 3001.2 mGycm, Automated exposure control for dose reduction was used. FINDINGS: LOWER CHEST: No significant findings. GENITOURINARY: RIGHT KIDNEY AND URETER: Nonobstructing right renal calculi measuring up to 6 mm. No hydronephrosis o r hydroureter. No solid renal masses, simple appearing renal cysts No urothelial lesions: no filling defect, dilation, stricture or wall thickening. LEFT KIDNEY AND URETER: Renal calculus with mild hydronephrosis at the ureteropelvic junction measuri ng up to 12 mm. Findings are new from prior. Additional nonobstructing calculi present. There is mild hydroureteronephrosis. Mild urothelial thickening is new from 01/16/2024. The thickening possibly due to the calculus. URINARY BLADDER: Moderately well distended. Limited evaluation secondary to partial filling of the bl adder with excreted IV contrast. No calculi or obvious mass. REPRODUCTIVE: Prostate is enlarged in size measuring 7.0 cm in transverse dimension. ABDOMEN LIVER: Unremarkable. GALLBLADDER AND BILE DUCTS: Unremarkable PANCREAS: Unremarkable. SPLEEN: Unremarkable. ADRENAL GLANDS: Unremarkable. STOMACH AND BOWEL: . No evidence of bowel obstruction. Scattered colonic diverticulosis. PERITONEUM: No evidence of pneumoperitoneum, free fluid, or adenopathy. VASCULATURE: No evidence of aortic aneurysm. MUSCULOSKELETAL: No acute osseous abnormalities. Mild disc degeneration changes are present throughou t the thoracolumbar spine. LYMPH NODES: No gross evidence for lymphadenopathy. SOFT TISSUE/ABDOMINAL WALL: Fat-containing inguinal hernias. IMPRESSION: 1. Thickened urothelium near the ureteropelvic junction just upstream to this is a calculus with mil d left hydrocephalus. Findings new from prior 01/16/2024 suggesting chronic inflammation/infection furt her workup recommended. 2. Additional bilateral nonobstructing renal calculi. 3. Prostatomegaly, correlate with serum PSA. 4. Bilateral fat-containing inguinal hernias. [facility], Workstation: [id number], 06/23/2024 5:31 PM
== END | disposition home or self-care (01) ==
LOC: RADCTMAIN 14:41
PROVIDERS: ATTEND Urology
DX: N40.0 Benign prostatic hyperplasia without lower urinary tract symptoms (principal); G91.9 Hydrocephalus, unspecified; R31.0 Gross hematuria; K40.20 Bilateral inguinal hernia, without obstruction or gangrene, not specified as recurrent; N20.0 Calculus of kidney; K57.30 Diverticulosis of large intestine without perforation or abscess without bleeding; N13.30 Unspecified hydronephrosis
CPT/HCPCS: 82565; 84520; 74178; 36415; 74400; Q9967

== ENCOUNTER → 2024-07-19 | Outpatient (CLI) | payer MEDICARE, OTHER ==
--- NOTE | 2024-07-19 08:49 | XR ---
EXAMINATION TYPE: XR KUB DATE OF EXAM: 07/19/2024 8:44 AM COMPARISON: 02/01/2013 CLINICAL INDICATION: Male, 74 years old with history of N20.1 LEFT URETERAL STONE; TECHNIQUE: One radiographic view of the abdomen was obtained. FINDINGS: The bowel gas pattern is nonspecific without dilated loops of small or large bowel. . Fecal material and gas are demonstrated throughout the colon and rectum. There is no evidence for organome yfn or pneumoperitoneum. The osseous structures are intact. Bilateral renal calculi measuring up t o 6 mm on the right and 11 mm on the left. IMPRESSION: 1. Bilateral renal calculi. 2. Nonspecific bowel gas pattern without radiographic evidence for acute process. [facility], , 07/19/2024 8:47 AM
== END | disposition home or self-care (01) ==
LOC: RADXRMAIN 08:24
PROVIDERS: ATTEND Urology
DX: N20.2 Calculus of kidney with calculus of ureter (principal)
CPT/HCPCS: 74018

== ENCOUNTER → 2024-08-02 | Outpatient (CLI) | payer MEDICARE, OTHER ==
--- NOTE | 2024-08-02 10:13 | XR ---
EXAMINATION TYPE: XR KUB DATE OF EXAM: 08/02/2024 COMPARISON: 07/19/2024 CLINICAL INDICATION: Male, 74 years old with history of CALCULUS-URETER N20.1; TECHNIQUE: XR KUB views of the abdomen. FINDINGS: The osseous structures are intact. The bowel gas pattern is nonspecific. Extensive retained fecal de bris correlate for constipation. Right kidney: Stable 6 mm right renal calculus with adjacent punctate 1 to 2 mm calculi. Left kidney: There are multiple calculi estimated at 6 with the largest measuring 6.8 mm. Pelvis: There are numerous calcifications in the pelvis which could be related to a bladder calculi. Distal ureteral calculus on the left is suspected measuring a diameter of 3 mm. Diffuse osteopenia, degenerative change of the spine and arthropathy of the shoulders. IMPRESSION: 1. Bilateral nephrolithiasis similar to prior exam. Correlate for distal left ureteral calculus. [facility], , 08/02/2024 10:11 AM
== END | disposition home or self-care (01) ==
LOC: RADXRMAIN 07:52
PROVIDERS: ATTEND Urology
DX: N20.1 Calculus of ureter (principal)
CPT/HCPCS: 74018

== ENCOUNTER 2025-02-07 03:06 | Emergency (ER) | payer MEDICARE, OTHER ==
--- NOTE | 2025-02-07 03:24 | ED ---
General Adult HPI - General Source: patient, EMS, RN notes reviewed Mode of arrival: EMS Limitations: no limitations - History of Present Illness Onset/Timin -: days(s) Associated Symptoms: fever/chills <Gabe Anne - Last Filed: 02/07/25 04:03> <MortezaalecSridevi Frankie - Last Filed: 02/08/25 07:27> - General Chief complaint: Weakness Stated complaint: Weakness Time Seen by Provider: 02/07/25 03:14 - History of Present Illness Initial comments: This is a 74-year-old male with history including atrial fibrillation hypertension presenting via EMS for suspected dehydration. Patient states he spent part of the day outside in the garage, suspecting he may have become dehydrated at that time. Patient states he has had some irregular "chills" today as well. States he has been drinking water today. Denies fever, chills, dizziness, headache, lethargy, altered mental status, chest pain, dyspnea, abdominal pain, N/V/D, urinary symptoms. (Gabe Anne) - Related Data Home Medications Medication Instructions Recorded Confirmed Ergocalciferol (Vitamin D2) 1,250 mcg PO YOST 03/14/21 02/26/24 [Drisdol (50,000 Iu)] Isosorbide Mononitrate ER [Imdur] 30 mg PO DAILY 03/14/21 02/26/24 Omeprazole 20 mg PO DAILY 03/14/21 02/26/24 amLODIPine [Norvasc] 10 mg PO DAILY 03/14/21 02/26/24 hydroCHLOROthiazide [Hydrodiuril] 25 mg PO DAILY 03/14/21 02/26/24 Multivitamins, Thera [Multivitamin 1 tab PO DAILY 02/23/24 02/26/24 (formulary)] Previous Rx's Medication Instructions Recorded Apixaban [Eliquis] 5 mg PO BID 30 Days #60 tab 01/19/24 cloNIDine HCL [Catapres] 0.1 mg PO HS tab 02/01/24 hydrALAZINE HCL [Apresoline] 75 mg PO AC-TID 30 Days #90 tab 02/01/24 Allergies Allergy/AdvReac Type Severity Reaction Status Date / Time Penicillins Allergy Swelling Verified 02/07/25 03:11 lips Sulfa (Sulfonamide Allergy Anaphylaxis Verified 02/07/25 03:11 Antibiotics) Review of Systems ROS Other: All systems not noted in ROS Statement are negative. <DayanaGabe - Last Filed: 02/07/25 04:03> ROS Other: All systems not noted in ROS Statement are negative. <Sridevi Israel - Last Filed: 02/08/25 07:27> ROS Statement: Those systems with pertinent positive or pertinent negative responses have been documented in the HPI. 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-has limited range of motion,able to lay flat but has difficuty move neck, arthritis, hx kindey stones, hital hernia current 2023, POARCH, stomach ulcer History of Any Multi-Drug Resistant Organisms: None Reported Past Surgical History: No Surgical Hx Reported Additional Past Surgical History / Comment(s): kidney stones with lithrotripsy,EGD,colonoscopy Past Anesthesia/Blood Transfusion Reactions: No Reported Reaction Past Psychological History: No Psychological Hx Reported Smoking Status: Never smoker - Past Family History Mother Family Medical History: Cancer Additional Family Medical History / Comment(s): lymphoma Father Family Medical History: Cancer Additional Family Medical History / Comment(s): lung. CA <DayanaGabe - Last Filed: 02/07/25 04:03> General Exam Limitations: no limitations General appearance: alert, in no apparent distress Head exam: Present: atraumatic, normocephalic, normal inspection Eye exam: Present: normal appearance, PERRL, EOMI. Absent: scleral icterus, conjunctival injection, periorbital swelling ENT exam: Present: normal exam, mucous membranes dry Neck exam: Present: normal inspection. Absent: tenderness, meningismus, lymphadenopathy Respiratory exam: Present: normal lung sounds bilaterally. Absent: respiratory distress, wheezes, rales, rhonchi, stridor, accessory muscle use, decreased breath sounds, prolonged expiratory Cardiovascular Exam: Present: regular rate, irregular rhythm, normal heart sounds. Absent: systolic murmur, diastolic murmur, rubs, gallop, clicks GI/Abdominal exam: Present: soft, normal bowel sounds. Absent: distended, tenderness, guarding, rebound, rigid Extremities exam: Present: normal inspection, full ROM, normal capillary refill, pedal edema (Positive BLE pitting edema extending to knees, left worse than right). Absent: tenderness, joint swelling, calf tenderness Back exam: Present: normal inspection Neurological exam: Present: alert, oriented X3, CN II-XII intact Psychiatric exam: Present: normal affect, normal mood Skin exam: Present: warm, dry, intact, normal color. Absent: rash <Gabe Anne - Last Filed: 02/07/25 04:03> Course Vital Signs 02/07/25 06:18 Temperature 97.8 F Pulse Rate 62 Respiratory 16 Rate Blood Pressure 148/89 O2 Sat by Pulse 97 Oximetry Medical Decision Making <Gabe Anne - Last Filed: 02/07/25 04:03> - Lab Data Result diagrams: 02/07/25 05:30 02/07/25 05:30 <Sridevi Israel - Last Filed: 02/08/25 07:27> - Medical Decision Making Was pt. sent in by a medical professional or institution (Dr. PA, ACCOUNTING OFFICER, urgent care, hospital, or fpc...) When possible be specific @ -No Did you speak to anyone other than the patient for history (EMS, parent, family, police, friend...)? What history was obtained from this source @ -No Did you review nursing and triage notes (agree or disagree)? Why? @ -I reviewed and agree with nursing and triage notes Were old charts reviewed (outside hosp., previous admission, EMS record, old EKG, old radiological studies, urgent care reports/EKG's, fpc records)? Report findings @ -No old charts were reviewed Differential Diagnosis (chest pain, altered mental status, abdominal pain women, abdominal pain men, vaginal bleeding, weakness, fever, dyspnea, syncope, headache, dizziness, GI bleed, back pain, seizure, CVA, palpatations, mental health, musculoskeletal)? @ -Differential Weakness: Hypoglycemia, shock, sepsis, hyponatremia, anemia, infection, PR, ETOH, adverse medicine reaction, overdose, stroke, this is not meant to be an all-inclusive list. EKG interpreted by me (3pts min.). @ -Atrial fibrillation without ST deviation or T wave inversion. Ventricular rate 69 bpm, QRS 90 ms, QTc 452 ms. X-rays interpreted by me (1pt min.). @ -CXR radiologist read pending CT interpreted by me (1pt min.). @ -None done U/S interpreted by me (1pt. min.). @ -None done What testing was considered but not performed or refused? (CT, X-rays, U/S, labs)? Why? @ -None What meds were considered but not given or refused? Why? @ -None Did you discuss the management of the patient with other professionals (professionals i.e. , PA, ACCOUNTING OFFICER, lab, RT, psych nurse, social worker delinquency prevention, plant scientist, teacher, audit officer, family service caseworker)? Give summary @ -No Was smoking cessation discussed for >3mins.? @ -No Was critical care preformed (if so, how long)? @ -No Were there social determinants of health that impacted care today? How? (Homelessness, low income, unemployed, alcoholism, drug addiction, transportation, low edu. Level, literacy, decrease access to med. care, custodial, rehab)? @ -No Was there de-escalation of care discussed even if they declined (Discuss DNR or withdrawal of care, Hospice)? DNR status @ -No What co-morbidities impacted this encounter? (DM, HTN, Smoking, COPD, CAD, Cancer, CVA, ARF, Chemo, Hep., AIDS, mental health diagnosis, sleep apnea, morbid obesity)? @ -None Was patient admitted / discharged? Hospital course, mention meds given and route, prescriptions, significant lab abnormalities, going to OR and other pertinent info. @ -Patient initially provided IV normal saline. Lab work and CXR results pending. Discussed patient HPI and physical exam findings with Dr. Israel before passing patient care to her. Undiagnosed new problem with uncertain prognosis? @ -No Drug Therapy requiring intensive monitoring for toxicity (Heparin, Nitro, Insulin, Cardizem)? @ -No Were any procedures done? @ -No Diagnosis/symptom? @ -Pending Acute, or Chronic, or Acute on Chronic? @ -Acute Uncomplicated (without systemic symptoms) or Complicated (systemic symptoms)? @ -Uncomplicated Side effects of treatment? @ -No Exacerbation, Progression, or Severe Exacerbation? @ -No Poses a threat to life or bodily function? How? (Chest pain, USA, PR, pneumonia, PE, COPD, DKA, ARF, appy, cholecystitis, CVA, Diverticulitis, Homicidal, Suicidal, threat to staff... and all critical care pts) @ -No (Gabe Anne) Was patient admitted / discharged? Hospital course, mention meds given and route, prescriptions, significant lab abnormalities, going to OR and other pertinent info. @ -Patient signed out to me pending laboratory studies. I did review the patient's blood work which was all within normal limits. Patient feels better after fluid administration. He will be discharged home at this time. Instructed to follow-up with his primary care and return for any new or worsening symptoms Undiagnosed new problem with uncertain prognosis? @ -No Drug Therapy requiring intensive monitoring for toxicity (Heparin, Nitro, Insulin, Cardizem)? @ -No Were any procedures done? @ -No Diagnosis/symptom? @ -Generalized weakness, acute dehydration Acute, or Chronic, or Acute on Chronic? @ -Acute Uncomplicated (without systemic symptoms) or Complicated (systemic symptoms)? @ -Complicated Side effects of treatment? @ -No Exacerbation, Progression, or Severe Exacerbation? @ -No Poses a threat to life or bodily function? How? (Chest pain, USA, PR, pneumonia, PE, COPD, DKA, ARF, appy, cholecystitis, CVA, Diverticulitis, Homicidal, Suicidal, threat to staff... and all critical care pts) @ -No (Sridevi Israel) - Lab Data Lab Results 02/07/25 02/07/25 02/07/25 Range/Units 04:00 04:27 04:27 WBC (4.50-10.00) 10*3/uL RBC (4.40-5.60) 10*6/uL Hgb (13.0-17.0) g/dL Hct (39.6-50.0) % MCV (80.0-97.0) fL MCH (27.0-32.0) pg MCHC (32.0-37.0) g/dL RDW (11.5-14.5) % Plt Count (140-440) 10*3/uL MPV (9.5-12.2) fL Immature Gran % (Auto) % Neutrophils % % Lymphocytes % % Monocytes % % Eosinophils % % Basophils % % Immature Gran # (0.00-0.04) 10*3/uL Neutrophils # (1.80-7.70) 10*3/uL Lymphocytes # (0.90-5.00) 10*3/uL Monocytes # (0.20-1.00) 10*3/uL Eosinophils # (0.04-0.35) 10*3/uL Basophils # (0.00-0.10) 10*3/uL PT (10.0-12.5) sec INR (<1.2) APTT (22.0-30.0) sec Sodium (137-145) mmol/L Potassium (3.5-5.1) mmol/L Chloride (98-107) mmol/L Carbon Dioxide (22-30) mmol/L Anion Gap mmol/L BUN (9-20) mg/dL Creatinine (0.66-1.25) mg/dL Est GFR (CKD-EPI)AfAm (>60 ml/min/1.73 sqM) Est GFR (CKD-EPI)NonAf (>60 ml/min/1.73 sqM) Glucose (74-99) mg/dL Calcium (8.4-10.2) mg/dL Total Bilirubin (0.2-1.3) mg/dL AST (17-59) U/L ALT (4-49) U/L Alkaline Phosphatase (38-126) U/L Troponin I (0.000-0.034) ng/mL NT-Pro-B Natriuret Pep pg/mL Total Protein (6.3-8.2) g/dL Albumin (3.5-5.0) g/dL 02/07/25 02/07/25 02/07/25 Range/Units 05:30 05:30 05:30 WBC 10.08 H (4.50-10.00) 10*3/uL RBC 6.34 H (4.40-5.60) 10*6/uL Hgb 17.0 (13.0-17.0) g/dL Hct 51.6 H (39.6-50.0) % MCV 81.4 (80.0-97.0) fL MCH 26.8 L (27.0-32.0) pg MCHC 32.9 (32.0-37.0) g/dL RDW (11.5-14.5) % Plt Count 226 (140-440) 10*3/uL MPV 9.1 L (9.5-12.2) fL Immature Gran % (Auto) 0.4 % Neutrophils % 76.6 % Lymphocytes % 13.7 % Monocytes % 8.0 % Eosinophils % 0.7 % Basophils % 0.6 % Immature Gran # 0.04 (0.00-0.04) 10*3/uL Neutrophils # 7.72 H (1.80-7.70) 10*3/uL Lymphocytes # 1.38 (0.90-5.00) 10*3/uL Monocytes # 0.81 (0.20-1.00) 10*3/uL Eosinophils # 0.07 (0.04-0.35) 10*3/uL Basophils # 0.06 (0.00-0.10) 10*3/uL PT 12.8 H (10.0-12.5) sec INR 1.2 H (<1.2) APTT 28.2 (22.0-30.0) sec Sodium (137-145) mmol/L Potassium (3.5-5.1) mmol/L Chloride (98-107) mmol/L Carbon Dioxide (22-30) mmol/L Anion Gap mmol/L BUN (9-20) mg/dL Creatinine (0.66-1.25) mg/dL Est GFR (CKD-EPI)AfAm (>60 ml/min/1.73 sqM) Est GFR (CKD-EPI)NonAf (>60 ml/min/1.73 sqM) Glucose (74-99) mg/dL Calcium (8.4-10.2) mg/dL Total Bilirubin (0.2-1.3) mg/dL AST (17-59) U/L ALT (4-49) U/L Alkaline Phosphatase (38-126) U/L Troponin I <0.012 (0.000-0.034) ng/mL NT-Pro-B Natriuret Pep pg/mL Total Protein (6.3-8.2) g/dL Albumin (3.5-5.0) g/dL 30/25 Range/Units 05:30 WBC (4.50-10.00) 10*3/uL RBC (4.40-5.60) 10*6/uL Hgb (13.0-17.0) g/dL Hct (39.6-50.0) % MCV (80.0-97.0) fL MCH (27.0-32.0) pg MCHC (32.0-37.0) g/dL RDW (11.5-14.5) % Plt Count (140-440) 10*3/uL MPV (9.5-12.2) fL Immature Gran % (Auto) % Neutrophils % % Lymphocytes % % Monocytes % % Eosinophils % % Basophils % % Immature Gran # (0.00-0.04) 10*3/uL Neutrophils # (1.80-7.70) 10*3/uL Lymphocytes # (0.90-5.00) 10*3/uL Monocytes # (0.20-1.00) 10*3/uL Eosinophils # (0.04-0.35) 10*3/uL Basophils # (0.00-0.10) 10*3/uL PT (10.0-12.5) sec INR (<1.2) APTT (22.0-30.0) sec Sodium 138 (137-145) mmol/L Potassium 3.8 (3.5-5.1) mmol/L Chloride 102 (98-107) mmol/L Carbon Dioxide 23 (22-30) mmol/L Anion Gap 13 mmol/L BUN 26 H (9-20) mg/dL Creatinine 0.69 (0.66-1.25) mg/dL Est GFR (CKD-EPI)AfAm >90 (>60 ml/min/1.73 sqM) Est GFR (CKD-EPI)NonAf >90 (>60 ml/min/1.73 sqM) Glucose 128 H (74-99) mg/dL Calcium 9.3 (8.4-10.2) mg/dL Total Bilirubin 0.5 (0.2-1.3) mg/dL AST 47 (17-59) U/L ALT 36 (4-49) U/L Alkaline Phosphatase 135 H (38-126) U/L Troponin I (0.000-0.034) ng/mL NT-Pro-B Natriuret Pep 617 pg/mL Total Protein 7.5 (6.3-8.2) g/dL Albumin 4.2 (3.5-5.0) g/dL Disposition <Gabe Anne - Last Filed: 02/07/25 04:03> Is patient prescribed a controlled substance at d/c from ED?: No Time of Disposition: 06:20 <Sridevi Israel - Last Filed: 02/08/25 07:27> Clinical Impression: Heat exhaustion, Dehydration Disposition: HOME SELF-CARE Condition: Stable Instructions (If sedation given, give patient instructions): Dehydration (ED) Additional Instructions: Increase your fluid intake. Follow-up with your doctor and return for any new or worsening symptoms Referrals: Ger Sanchez MD [Primary Care Provider] - 1-2 days
[2025-02-07] MEDS: SODIUM CHLORIDE 0.9% 1,000 ML IV ONE (04:10)
--- NOTE | 2025-02-07 04:36 | XR ---
EXAM: XR Chest, 2 Views CLINICAL HISTORY: ITS.REASON XR Reason: Weakness TECHNIQUE: Frontal and lateral views of the chest. COMPARISON: No relevant prior studies available. FINDINGS: Lungs: No consolidation or mass. Pleural space: No effusion. Heart: cardiomegaly. Bones/joints: No acute findings. IMPRESSION: No acute cardiopulmonary process.
[2025-02-07 05:57] LABS: Basophils # (A) 0.06 10*3/uL (0.00-0.10); Basophils % (A) 0.6 %; Eosinophils # (A) 0.07 10*3/uL (0.04-0.35); Eosinophils % (A) 0.7 %; HCT 51.6 % (39.6-50.0); Lymphocytes # (A) 1.38 10*3/uL (0.90-5.00); Lymphocytes % (A) 13.7 %; MCH 26.8 pg (27.0-32.0); MCHC 32.9 g/dL (32.0-37.0); MCV 81.4 fL (80.0-97.0); Mean Platelet Volume 9.1 fL (9.5-12.2); Monocytes # (A) 0.81 10*3/uL (0.20-1.00); Neutrophils # (A) 7.72 10*3/uL (1.80-7.70); Neutrophils % (A) 76.6 %; Platelet Count 226 10*3/uL (140-440); RBC 6.34 10*6/uL (4.40-5.60); RDW 17.4 % (11.5-14.5); WBC 10.08 10*3/uL (4.50-10.00)
[2025-02-07 06:01] LABS: INR 1.2 (<1.2); Partial Thromboplastin Time 28.2 sec (22.0-30.0); Prothrombin Time 12.8 sec (10.0-12.5)
[2025-02-07 06:06] LABS: ALT 36 U/L (4-49); AST 47 U/L (17-59); African American GFR (CKD) >90 (>60 ml/min/1.73 sqM); Albumin 4.2 g/dL (3.5-5.0); Alkaline Phosphatase 135 U/L (38-126); Anion Gap 13 mmol/L; Blood Urea Nitrogen 26 mg/dL (9-20); Calcium 9.3 mg/dL (8.4-10.2); Carbon Dioxide 23 mmol/L (22-30); Chloride 102 mmol/L (98-107); Glucose 128 mg/dL (74-99); Non-African American GFR(CKD) >90 (>60 ml/min/1.73 sqM); Potassium 3.8 mmol/L (3.5-5.1); Sodium 138 mmol/L (137-145); Total Bilirubin 0.5 mg/dL (0.2-1.3); Total Protein 7.5 g/dL (6.3-8.2)
[2025-02-07 06:14] LABS: NT-Pro-B-Type Natriuretic Pept 617 pg/mL
[2025-02-07 06:19] VITALS: BP 148/89; PULSE 62; RESP 16; TEMP 97.8
== END 2025-02-07 07:08 | disposition home or self-care (01) ==
LOC: EC 03:06
DX: T67.5XXA Heat exhaustion, unspecified, initial encounter (principal); E86.0 Dehydration; Z88.0 Allergy status to penicillin; Z88.2 Allergy status to sulfonamides
CPT/HCPCS: 36415; 71046; 80053; 83880; 84484; 85025; 85610; 85730; 93005; 96360; 99285